=== PATIENT | female | born 1980 | race Caucasian/White ===

== ENCOUNTER 2019-05-06 19:56 | Observation (INO) | payer BC ==
[2019-05-06] MEDS ORDERED: Sodium Chloride 0.9% 1000 ML 1,000 ML IV STA (20:33)
[2019-05-06] MEDS ORDERED: Sodium Chloride 0.9% 1000 ML 1,000 ML ONE (20:35)
[2019-05-06 20:44] LABS: Absolute Neutrophil Ct (ANC) 7.53 (1.4-6.9); Basophil (Absolute #) 0.11 (0-0.4); Eosinophil % 2.3 % (0.00-5.0); Eosinophil (Absolute #) 0.25 (0-0.5); Hematocrit 24.8 % (35-47); Lymphocyte (Absolute #) 2.58 (1.0-4.6); Lymphocytes % 23.5 % (24.0-44.0); Mean Cell Volume 74.5 fl (78-100); Mean Corpuscular Hemoglobin 20.7 pg (26-32); Mean Corpuscular Hgb Concent. 27.8 g/dl (32-36); Mean Platelet Volume 10.7 fl (6-9.5); Monocyte (Absolute #) 0.51 (0.0-1.3); Monocytes % 4.6 % (0.0-12.0); Neutrophil % 68.6 % (36.0-66.0); Platelet Count 426 K/mm3 (150-450); Red Blood Count 3.33 M/mm3 (4.1-5.4)
--- NOTE | 2019-05-06 20:48 | ERPHSYRPT ---
- History of Present Illness Time Seen by Provider: 05/06/19 20:20 Source: patient, family Exam Limitations: no limitations Patient Subjective Stated Complaint: Abdnormal labs Triage Nursing Assessment: Patient ambulated back to ED and transferred self to bed. Patient A+O X3. Patient's skin pale, warm and dry. Patient complains of increased SOB for the past two days. [facility] and had labs drawn and chest x-ray. Patient received call from [facility] [employer] at 1600 stating patient's hemaglobin was 7.0 and her thyroid level was low and she needed to go to ED. Patient denies pain or discomfort. Lungs clear a/p zenaida. Heart tones audible. No edema noted. Patient states she is currently on her menstual cycle and it is heavy with blood clots. Physician History: 38 years old female with a history of thyroidectomy not taking any medications present in the ER for low hemoglobin of 7. Patient report having gradually worsening shortness of breath since yesterday with negative chest x-ray done outpatient and hemoglobin turned out to be 7. Patient also reports having heavy menstrual cycles every time but this time she is passing big clots. She denies any chest pain or palpitations but shortness of breath especially with activity and better with testing. She also has nonproductive cough for the last few days. Patient reports she has chronic anemia and is supposed to take iron but has not been taking. Denies any abdominal pain nausea or vomiting. Denies any dark-colored stool. Modifying Factors: Improves With: movement Associated Symptoms: shortness of breath, cough, No nausea, No vomiting, No abdominal pain, No chest pain, No malaise Allergies/Adverse Reactions: prochlorperazine [From Compazine] Allergy (Verified 05/06/19 20:09) Home Medications: Levothyroxine Sodium 175 mcg PO DAILY 05/06/19 [History] Hx Influenza Vaccination/Date Given: No Hx Pneumococcal Vaccination/Date Given: No Immunizations Up to Date: Yes - Review of Systems Constitutional: No Symptoms Eyes: No Symptoms Ears, Nose, & Throat: No Symptoms Respiratory: No Symptoms Abdominal/Gastrointestinal: No Symptoms Genitourinary Symptoms: No Symptoms Skin: No Symptoms Neurological: No Symptoms Endocrine: No Symptoms Hematologic/Lymphatic: No Symptoms Immunological/Allergic: No Symptoms - Past Medical History Pertinent Past Medical History: Yes Neurological History: No Pertinent History ENT History: No Pertinent History Cardiac History: No Pertinent History Respiratory History: No Pertinent History Endocrine Medical History: Hypothyroidism Musculoskeletal History: No Pertinent History GI Medical History: No Pertinent History History: No Pertinent History Psycho-Social History: No Pertinent History Female Reproductive Disorders: No Pertinent History - Past Surgical History Past Surgical History: Yes Neuro Surgical History: No Pertinent History Cardiac: No Pertinent History Respiratory: No Pertinent History Gastrointestinal: No Pertinent History Genitourinary: No Pertinent History Musculoskeletal: No Pertinent History Female Surgical History: Section Other Surgical History: X 1. Thyroidectomy 2016 - Social History Smoking Status: Never smoker Exposure to second hand smoke: No Drug Use: none Patient Lives Alone: No - Female History Hx Last Menstrual Period: currently Hx Now: No - Nursing Vital Signs Nursing Vital Signs: Initial Vital Signs Temperature 98.0 F 05/06/19 20:16 Pulse Rate 94 H 05/06/19 20:16 Respiratory Rate 18 05/06/19 20:16 Blood Pressure 128/71 05/06/19 20:16 O2 Sat by Pulse Oximetry 100 05/06/19 20:16 Pain Scale Pain Intensity 0 - Physical Exam General Appearance: no apparent distress Eye Exam: PERRL/EOMI, eyes nml inspection Ears, Nose, Throat Exam: normal ENT inspection, TMs normal, pharynx normal Neck Exam: normal inspection, non-tender, supple, full range of motion Respiratory Exam: normal breath sounds, chest tenderness, lungs clear, airway intact, No respiratory distress Cardiovascular Exam: regular rate/rhythm, normal heart sounds, normal peripheral pulses Gastrointestinal/Abdomen Exam: soft, normal bowel sounds, No tenderness, No distention Back Exam: normal inspection Extremity Exam: normal inspection, normal range of motion Neurologic Exam: alert, oriented x 3, cooperative Skin Exam: normal color SpO2 Interpretation: normal SpO2: 100 O2 Delivery: Room Air - Course Nursing assessment & vital signs reviewed: Yes Ordered Tests: Active Orders 24 hr Category Date Time Status Consent,Obtain ROUTINE Care 05/06/19 21:37 Active H&H 1 Hr Post Transfusion 1 HR POST TRANSFUS Care 05/06/19 21:37 Active IV Insertion STAT Care 05/06/19 20:33 Active CBC W DIFF Stat Lab 05/06/19 20:33 Completed CMP Stat Lab 05/06/19 20:20 Completed Occult Blood-Screening (Stool) [Occult Blood - Cancer Lab 05/06/19 21:38 Ordered Screen] Stat PROTIME WITH INR Stat Lab 05/06/19 20:33 Completed PTT Stat Lab 05/06/19 20:33 Completed TSH [TSH, 3RD Generation] Stat Lab 05/06/19 20:20 Completed Medication Summary Discontinued Medications Generic Name Dose Route Start Last Admin Trade Name Joann PRN Reason Stop Dose Admin Sodium Chloride 1,000 mls @ 999 mls/hr 05/06/19 20:33 05/06/19 21:39 Sodium Chloride 0.9% 1000 Ml IV 05/06/19 21:33 Infused .Q1H1M STA Infusion Sodium Chloride Confirm 05/06/19 20:35 Sodium Chloride 0.9% 1000 Ml Administered 05/06/19 20:36 Dose 1,000 mls @ ud .ROUTE .K-MED ONE Lab/Rad Data: Laboratory Result Diagrams 05/06/19 20:33 05/06/19 20:20 Laboratory Results 05/06/19 05/06/19 05/06/19 Range/Units 20:33 20:33 20:20 WBC 11.0 H (4.0-10.5) K/mm3 RBC 3.33 L (4.1-5.4) M/mm3 Hgb 6.9 L* (12.0-16.0) gm/dl Hct 24.8 L (35-47) % MCV 74.5 L (78-100) fl MCH 20.7 L (26-32) pg MCHC 27.8 L (32-36) g/dl RDW 19.0 H (11.5-14.0) % Plt Count 426 (150-450) K/mm3 MPV 10.7 H (6-9.5) fl Gran % 68.6 H (36.0-66.0) % Eos # (Auto) 0.25 (0-0.5) Absolute Lymphs (auto) 2.58 (1.0-4.6) Absolute Monos (auto) 0.51 (0.0-1.3) Lymphocytes % 23.5 L (24.0-44.0) % Monocytes % 4.6 (0.0-12.0) % Eosinophils % 2.3 (0.00-5.0) % Basophils % 1.0 (0.0-0.4) % Absolute Granulocytes 7.53 H (1.4-6.9) Basophils # 0.11 (0-0.4) PT 12.6 H (9.95-12.35) SECONDS INR 1.11 (0.8-3.0) APTT 32.1 (25.3-37.0) SECONDS Sodium (137-145) mmol/L Potassium (3.5-5.1) mmol/L Chloride (98-107) mmol/L Carbon Dioxide (22-30) mmol/L Anion Gap (5-15) MEQ/L BUN (7-17) mg/dL Creatinine (0.52-1.04) mg/dL Estimated GFR ML/MIN Glucose (74-106) mg/dL Calcium (8.4-10.2) mg/dL Total Bilirubin (0.2-1.3) mg/dL AST (14-36) U/L ALT (0-35) U/L Alkaline Phosphatase (38-126) U/L Serum Total Protein (6.3-8.2) g/dL Albumin (3.5-5.0) g/dL TSH 3rd Generation 53.500 H (0.47-4.68) mIU/L 05/06/19 Range/Units 20:20 WBC (4.0-10.5) K/mm3 RBC (4.1-5.4) M/mm3 Hgb (12.0-16.0) gm/dl Hct (35-47) % MCV (78-100) fl MCH (26-32) pg MCHC (32-36) g/dl RDW (11.5-14.0) % Plt Count (150-450) K/mm3 MPV (6-9.5) fl Gran % (36.0-66.0) % Eos # (Auto) (0-0.5) Absolute Lymphs (auto) (1.0-4.6) Absolute Monos (auto) (0.0-1.3) Lymphocytes % (24.0-44.0) % Monocytes % (0.0-12.0) % Eosinophils % (0.00-5.0) % Basophils % (0.0-0.4) % Absolute Granulocytes (1.4-6.9) Basophils # (0-0.4) PT (9.95-12.35) SECONDS INR (0.8-3.0) APTT (25.3-37.0) SECONDS Sodium 139 (137-145) mmol/L Potassium 4.0 (3.5-5.1) mmol/L Chloride 104 (98-107) mmol/L Carbon Dioxide 27 (22-30) mmol/L Anion Gap 12.5 (5-15) MEQ/L BUN 10 (7-17) mg/dL Creatinine 1.15 H (0.52-1.04) mg/dL Estimated GFR 56.1 ML/MIN Glucose 137 H (74-106) mg/dL Calcium 8.6 (8.4-10.2) mg/dL Total Bilirubin 0.20 (0.2-1.3) mg/dL AST 21 (14-36) U/L ALT 16 (0-35) U/L Alkaline Phosphatase 101 (38-126) U/L Serum Total Protein 7.4 (6.3-8.2) g/dL Albumin 4.0 (3.5-5.0) g/dL TSH 3rd Generation (0.47-4.68) mIU/L - Progress Progress: unchanged, re-examined Progress Note: she is given a bolus of fluid. She has hemoglobin of 6.9. After informed consent about risks and benefits of cost fusion crossmatch is done and will plan on transfusing this patient agreed to go ahead with transfusion. She has chest x-ray done this afternoon which was negative. Lungs are bilaterally clear to auscultation. I do not think need to do another x-rays.stool occult is negative. Discussed with Dr. Gonzalez hospitalist hr operations advisor and patient is being admitted for observation. 05/06/19 21:45 Discussed with : Marlon Will see patient in: hospital (observation) Counseled pt/family regarding: lab results, diagnosis - Departure Departure Disposition: Observation Clinical Impression: Symptomatic anemia Condition: Stable Critical Care Time: No Referrals: DALIA GREENFIELD [Primary Care Provider] -
[2019-05-06 20:49] LABS: Hemoglobin 6.9 gm/dl (12.0-16.0)
[2019-05-06 21:00] LABS: INR 1.11 (0.8-3.0); PROTIME 12.6 SECONDS (9.95-12.35)
[2019-05-06 21:02] LABS: PTT 32.1 SECONDS (25.3-37.0)
[2019-05-06 21:04] LABS: ANION GAP 12.5 MEQ/L (5-15); BILIRUBIN,TOTAL 0.2 mg/dL (0.2-1.3); Calcium 8.6 mg/dL (8.4-10.2); Creatinine 1 1.15 mg/dL (0.52-1.04); Total Protein 7.4 g/dL (6.3-8.2)
[2019-05-06 22:00] LABS: Slide Review 1 YES
[2019-05-06 22:34] LABS: ABO TYPING O; Antibody Screen NEGATIVE (NEGATIVE); RH TYPING POSITIVE
[2019-05-06 22:36] LABS: CROSS MATCH (PRBC) COMPATIBLE (COMPATIBLE)
[2019-05-06] MEDS ORDERED: Sodium Chloride 0.9% 500 ML 500 ML IV ONE (22:40)
[2019-05-07 05:46] LABS: Absolute Neutrophil Ct (ANC) 6.51 (1.4-6.9); BASOPHIL % 0.7 % (0.0-0.4); Basophil (Absolute #) 0.07 (0-0.4); Eosinophil % 2.3 % (0.00-5.0); Eosinophil (Absolute #) 0.24 (0-0.5); Hemoglobin 8.2 gm/dl (12.0-16.0); Lymphocyte (Absolute #) 3.02 (1.0-4.6); Lymphocytes % 28.8 % (24.0-44.0); Mean Cell Volume 76.1 fl (78-100); Mean Corpuscular Hgb Concent. 29.3 g/dl (32-36); Mean Platelet Volume 11.3 fl (6-9.5); Monocyte (Absolute #) 0.63 (0.0-1.3); Neutrophil % 62.2 % (36.0-66.0); Platelet Count 382 K/mm3 (150-450); Red Blood Count 3.68 M/mm3 (4.1-5.4); Red Cell Distribution Width 18.5 % (11.5-14.0); White Blood Count 10.5 K/mm3 (4.0-10.5)
[2019-05-07 05:56] LABS: Mean Corpuscular Hemoglobin 22.2 pg (26-32)
[2019-05-07 05:58] LABS: ALBUMIN 3.6 g/dL (3.5-5.0); ALKALINE PHOSPHATASE 100 U/L (38-126); ANION GAP 13.7 MEQ/L (5-15); BLOOD UREA NITROGEN 10 mg/dL (7-17); CHLORIDE 105 mmol/L (98-107); Calcium 7.9 mg/dL (8.4-10.2); Carbon Dioxide 25 mmol/L (22-30); Creatinine 1 1.02 mg/dL (0.52-1.04); Glucose 97 mg/dL (74-106); Potassium 3.5 mmol/L (3.5-5.1); SGOT/AST 22 U/L (14-36); SGPT/ALT 15 U/L (0-35); SODIUM 140 mmol/L (137-145); Total Protein 6.8 g/dL (6.3-8.2)
--- NOTE | 2019-05-07 10:47 | PCM.CONS ---
History of Present Illness - Reason for Consult Chief Complaint: anemia, hypothyroid Date of Consultation Date: 05/07/19 Reason for Consult: ANEMIA, MENORRHAGIA Requesting Provider: ZHANG SWEET Consulting Provider: SAÚL FLEMING DO History of Present Illness: PT IS A 38 YO LMP 7 DAYS AGO WITH HX OF HYPOTHYROID WAS SEEN IN [facility] YESTERDAY FOR COUGHING AND DYSPNEA WHERE LABS WERE DRAWN AND WAS NOTICED TO BEING ANEMIC WITH A HEMOGLOBIN OF 7. PT STATES HER LAST SEVERAL PERIODS HAVE BEEN NORMAL CYCLE HOWEVER THIS CURRENT PERIOD EXPERIENCED HEAVY BLEEDING PASSING CLOTS. DOES STATES THAT HER PREVIOUS PERIOD WAS NORMAL IN LENGTH AND HAS HAD HEAVY PERIODS IN THE PAST SUCH THIS CURRENT ONE. DENIES BEING ON ANY CONTROL MEASURE OR USING ANY MEDICATION TO ALLEVIATE HER HEAVY BLEEDING. 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 DID CO MILD FATIGUE AND COUGHING WHEN SHE CAME INTO THE ER. 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 HAS RECEIVED 2 UNITS OF BLOOD AND FEELING BETTER. VSS AFEBRILE PELVIC EXAM; DECLINES AT THIS TIME LABS REVIEWED A/P ANEMIA, MENORRHAGIA STABLE PELVIC SONOGRAM ORDERED. D/W PT THE NEED TO EITHER MEDICALLY MANAGE HER HEAVY PERIODS VS SURGICAL MANAGEMENT. PT WILL CONSIDER BOTH OPTIONS AND LET ME KNOW WHEN SHE SEES ME IN THE OFFICE THIS SUNDAY OR NEXT SUNDAY. DW HER THE NEED FOR AT LEAST A HYSTEROSCOPY D&C FOR EVALUATION OF ENDOMETRIAL LINING. DW HER THE OPTIONS OF PLACING HER ON TRANEXAMIC ACID DURING MENSTURAL PERIOD VS MIRENA IUD, VS MONTHLY PROGESTERONE WITHDRAWL BLEEDING TO ALLEVIATE HER MENSTRUAL FLOW. PT WILL FU IN MY OFFICE DIRECTED EITHER THIS SUNDAY OR THIS COMING SUNDAY FOR FURTHER EVALUATION. - Review of Systems Constitutional: Fatigue Eyes: No Symptoms Ears, Nose, & Throat: No Symptoms Respiratory: Cough Cardiac: No Chest Pain, No Edema, No Syncope Abdominal/Gastrointestinal: No Abdominal Pain, No Nausea, No Vomiting, No Diarrhea Genitourinary Symptoms: Menorrhagia Musculoskeletal: No Symptoms Skin: No Symptoms Neurological: No Symptoms Medications & Allergies Home Medications: Home Medication List Levothyroxine Sodium 100 Mcg [Synthroid 100 Mcg] 100 mcg PO DAILY 05/07/19 [History Confirmed 05/07/19] Allergies/Adverse Reactions: Allergies Allergy/AdvReac Type Severity Reaction Status Date / Time prochlorperazine Allergy Verified 05/06/19 20:09 [From Compazine] - Past Medical History Past Medical History: Yes Neurological History: No Pertinent History ENT History: No Pertinent History Cardiac History: No Pertinent History Respiratory History: No Pertinent History Endocrine Medical History: Hypothyroidism Musculoskelatal History: No Pertinent History GI Medical History: No Pertinent History History: No Pertinent History Pyscho-Social History: No Pertinent History Reproductive Disorders: No Pertinent History Comment: anemia - Female History Hx Last Menstrual Period: currently Are you now?: No - Past Surgical History Past Surgical History: Yes Neuro Surgical History: No Pertinent History Cardiac History: No Pertinent History Respiratory Surgery: No Pertinent History GI Surgical History: No Pertinent History Genitourinary Surgical Hx: No Pertinent History Musculskeletal Surgical Hx: No Pertinent History Female Surgical History: Section Other Surgical History: X 1. Thyroidectomy 2016 - Social History Smoking Status: Former smoker Exposure to second hand smoke: No Alcohol: None Drug Use: none - Physical Exam Vital Signs: Vital Signs - 24 hr Temp Pulse Resp BP BP Pulse Ox 05/07/19 07:08 98.0 F 86 18 119/66 94 L 05/07/19 04:00 99.3 F 83 18 135/79 95 05/07/19 01:10 95 05/07/19 01:06 86 18 95 05/07/19 01:04 98.2 F 95 H 18 144/69 144/69 95 05/06/19 23:20 88 18 136/73 96 05/06/19 22:06 86 16 154/95 98 05/06/19 21:48 100 05/06/19 21:42 88 18 114/56 100 05/06/19 20:16 98.0 F 94 H 18 128/71 100 General Appearance: no apparent distress, alert Neurologic Exam: alert, oriented x 3, cooperative, normal mood/affect, nml cerebellar function, nml station & gait, sensation nml, No motor deficits Pelvic Exam: deferred, other Results - Labs Lab/Micro Results: Lab Results-Last 24 Hours 05/06/19 05/06/19 05/06/19 Range/Units 20:20 20:20 20:33 WBC 11.0 H (4.0-10.5) K/mm3 RBC 3.33 L (4.1-5.4) M/mm3 Hgb 6.9 L* (12.0-16.0) gm/dl Hct 24.8 L (35-47) % MCV 74.5 L (78-100) fl MCH 20.7 L (26-32) pg MCHC 27.8 L (32-36) g/dl RDW 19.0 H (11.5-14.0) % Plt Count 426 (150-450) K/mm3 MPV 10.7 H (6-9.5) fl Gran % 68.6 H (36.0-66.0) % Eos # (Auto) 0.25 (0-0.5) Absolute Lymphs (auto) 2.58 (1.0-4.6) Absolute Monos (auto) 0.51 (0.0-1.3) Lymphocytes % 23.5 L (24.0-44.0) % Monocytes % 4.6 (0.0-12.0) % Eosinophils % 2.3 (0.00-5.0) % Basophils % 1.0 (0.0-0.4) % Absolute Granulocytes 7.53 H (1.4-6.9) Basophils # 0.11 (0-0.4) PT (9.95-12.35) SECONDS INR (0.8-3.0) APTT (25.3-37.0) SECONDS Sodium 139 (137-145) mmol/L Potassium 4.0 (3.5-5.1) mmol/L Chloride 104 (98-107) mmol/L Carbon Dioxide 27 (22-30) mmol/L Anion Gap 12.5 (5-15) MEQ/L BUN 10 (7-17) mg/dL Creatinine 1.15 H (0.52-1.04) mg/dL Estimated GFR 56.1 ML/MIN Glucose 137 H (74-106) mg/dL Calcium 8.6 (8.4-10.2) mg/dL Total Bilirubin 0.20 (0.2-1.3) mg/dL AST 21 (14-36) U/L ALT 16 (0-35) U/L Alkaline Phosphatase 101 (38-126) U/L Serum Total Protein 7.4 (6.3-8.2) g/dL Albumin 4.0 (3.5-5.0) g/dL TSH 3rd Generation 53.500 H (0.47-4.68) mIU/L Stool Occult Bld Scrn (NEGATIVE) Slides for Path Review YES ABO Group Rh Factor Antibody Screen (NEGATIVE) Crossmatch (COMPATIBLE) 05/06/19 05/06/19 05/06/19 Range/Units 20:33 20:50 20:50 WBC (4.0-10.5) K/mm3 RBC (4.1-5.4) M/mm3 Hgb (12.0-16.0) gm/dl Hct (35-47) % MCV (78-100) fl MCH (26-32) pg MCHC (32-36) g/dl RDW (11.5-14.0) % Plt Count (150-450) K/mm3 MPV (6-9.5) fl Gran % (36.0-66.0) % Eos # (Auto) (0-0.5) Absolute Lymphs (auto) (1.0-4.6) Absolute Monos (auto) (0.0-1.3) Lymphocytes % (24.0-44.0) % Monocytes % (0.0-12.0) % Eosinophils % (0.00-5.0) % Basophils % (0.0-0.4) % Absolute Granulocytes (1.4-6.9) Basophils # (0-0.4) PT 12.6 H (9.95-12.35) SECONDS INR 1.11 (0.8-3.0) APTT 32.1 (25.3-37.0) SECONDS Sodium (137-145) mmol/L Potassium (3.5-5.1) mmol/L Chloride (98-107) mmol/L Carbon Dioxide (22-30) mmol/L Anion Gap (5-15) MEQ/L BUN (7-17) mg/dL Creatinine (0.52-1.04) mg/dL Estimated GFR ML/MIN Glucose (74-106) mg/dL Calcium (8.4-10.2) mg/dL Total Bilirubin (0.2-1.3) mg/dL AST (14-36) U/L ALT (0-35) U/L Alkaline Phosphatase (38-126) U/L Serum Total Protein (6.3-8.2) g/dL Albumin (3.5-5.0) g/dL TSH 3rd Generation (0.47-4.68) mIU/L Stool Occult Bld Scrn (NEGATIVE) Slides for Path Review ABO Group O Rh Factor POSITIVE Antibody Screen NEGATIVE (NEGATIVE) Crossmatch COMPATIBLE (COMPATIBLE) 05/06/19 05/06/19 05/07/19 Range/Units 20:50 21:38 05:05 WBC 10.5 (4.0-10.5) K/mm3 RBC 3.68 L (4.1-5.4) M/mm3 Hgb 8.2 L (12.0-16.0) gm/dl Hct 28.0 L (35-47) % MCV 76.1 L (78-100) fl MCH 22.2 L (26-32) pg MCHC 29.3 L (32-36) g/dl RDW 18.5 H (11.5-14.0) % Plt Count 382 (150-450) K/mm3 MPV 11.3 H (6-9.5) fl Gran % 62.2 (36.0-66.0) % Eos # (Auto) 0.24 (0-0.5) Absolute Lymphs (auto) 3.02 (1.0-4.6) Absolute Monos (auto) 0.63 (0.0-1.3) Lymphocytes % 28.8 (24.0-44.0) % Monocytes % 6.0 (0.0-12.0) % Eosinophils % 2.3 (0.00-5.0) % Basophils % 0.7 (0.0-0.4) % Absolute Granulocytes 6.51 (1.4-6.9) Basophils # 0.07 (0-0.4) PT (9.95-12.35) SECONDS INR (0.8-3.0) APTT (25.3-37.0) SECONDS Sodium (137-145) mmol/L Potassium (3.5-5.1) mmol/L Chloride (98-107) mmol/L Carbon Dioxide (22-30) mmol/L Anion Gap (5-15) MEQ/L BUN (7-17) mg/dL Creatinine (0.52-1.04) mg/dL Estimated GFR ML/MIN Glucose (74-106) mg/dL Calcium (8.4-10.2) mg/dL Total Bilirubin (0.2-1.3) mg/dL AST (14-36) U/L ALT (0-35) U/L Alkaline Phosphatase (38-126) U/L Serum Total Protein (6.3-8.2) g/dL Albumin (3.5-5.0) g/dL TSH 3rd Generation (0.47-4.68) mIU/L Stool Occult Bld Scrn NEGATIVE (NEGATIVE) Slides for Path Review ABO Group Rh Factor Antibody Screen (NEGATIVE) Crossmatch COMPATIBLE (COMPATIBLE) 05/07/19 Range/Units 05:05 WBC (4.0-10.5) K/mm3 RBC (4.1-5.4) M/mm3 Hgb (12.0-16.0) gm/dl Hct (35-47) % MCV (78-100) fl MCH (26-32) pg MCHC (32-36) g/dl RDW (11.5-14.0) % Plt Count (150-450) K/mm3 MPV (6-9.5) fl Gran % (36.0-66.0) % Eos # (Auto) (0-0.5) Absolute Lymphs (auto) (1.0-4.6) Absolute Monos (auto) (0.0-1.3) Lymphocytes % (24.0-44.0) % Monocytes % (0.0-12.0) % Eosinophils % (0.00-5.0) % Basophils % (0.0-0.4) % Absolute Granulocytes (1.4-6.9) Basophils # (0-0.4) PT (9.95-12.35) SECONDS INR (0.8-3.0) APTT (25.3-37.0) SECONDS Sodium 140 (137-145) mmol/L Potassium 3.5 (3.5-5.1) mmol/L Chloride 105 (98-107) mmol/L Carbon Dioxide 25 (22-30) mmol/L Anion Gap 13.7 (5-15) MEQ/L BUN 10 (7-17) mg/dL Creatinine 1.02 (0.52-1.04) mg/dL Estimated GFR > 60.0 ML/MIN Glucose 97 (74-106) mg/dL Calcium 7.9 L (8.4-10.2) mg/dL Total Bilirubin 1.00 (0.2-1.3) mg/dL AST 22 (14-36) U/L ALT 15 (0-35) U/L Alkaline Phosphatase 100 (38-126) U/L Serum Total Protein 6.8 (6.3-8.2) g/dL Albumin 3.6 (3.5-5.0) g/dL TSH 3rd Generation (0.47-4.68) mIU/L Stool Occult Bld Scrn (NEGATIVE) Slides for Path Review ABO Group Rh Factor Antibody Screen (NEGATIVE) Crossmatch (COMPATIBLE) - Radiology Impressions Radiology Exams & Impressions: Radiology Procedures Category Date Time Status PELVIC [US] Urgent Exams 05/07/19 Ordered PELVIS TRANS VAGINAL [US] Urgent Exams 05/07/19 Ordered Assessment/Plan (1) Menorrhagia Current Visit: Yes Status: Chronic Onset Date: ~04/30/19 Qualifiers: Menorrahagia type: with onset of menstrual periods Qualified Code(s): N92.2 - Excessive menstruation at puberty Code(s): N92.0 - EXCESSIVE AND FREQUENT MENSTRUATION WITH REGULAR CYCLE (2) Hypothyroidism Current Visit: No Status: Acute Onset Date: ~05/06/19 Code(s): E03.9 - HYPOTHYROIDISM, UNSPECIFIED (3) Symptomatic anemia Current Visit: Yes Status: Acute Onset Date: ~05/06/19 Code(s): D64.9 - ANEMIA, UNSPECIFIED
[2019-05-07 11:28] VITALS: BP 175/84; PULSE 84; O2SAT 100
--- NOTE | 2019-05-07 12:07 | XRAY ---
Indication: Menorrhagia. Two-dimensional transabdominal and transvaginal pelvic sonogram performed. Comparison: June 11, 2012. Uterus again anteverted today measuring 11.5 x 3.7 x 5.2 cm. Lower uterine segment demonstrates interval enlarging nabothian cysts, largest 10 mm. Endometrial stripe measures 8 mm. No endometrial cavity mass or fluid collection. Neither ovaries visualized. No suspicious adnexal mass or free fluid. Impression: Interval enlarging nabothian cysts. Both ovaries not visualized. Remaining pelvic sonogram negative.
--- NOTE | 2019-05-07 13:25 | PCM.SSS ---
History of Present Illness - Chief Complaint Chief Complaint: came with cough and heavy menstrual period History of Present Illness: is a 38 years old female with a history of thyroidectomy not taking any medications present in the ER for low hemoglobin of 7. Patient report having gradually worsening shortness of breath since yesterday with negative chest x-ray done outpatient and hemoglobin turned out to be 7. Patient also reports having heavy menstrual cycles every time but this time she is passing big clots. She denies any chest pain or palpitations but shortness of breath especially with activity and better with testing. She also has nonproductive cough for the last few days. Patient reports she has chronic anemia and is supposed to take iron but has not been taking. Denies any abdominal pain nausea or vomiting. Denies any dark-colored stool. Modifying Factors: Improves With: movement Associated Symptoms: shortness of breath, cough, No nausea, No vomiting, No abdominal pain, No chest pain, No malaise - Review of Systems Constitutional: No Fever, No Chills Eyes: No Symptoms Ears, Nose, & Throat: No Symptoms Respiratory: No Cough, No Short Of Breath Cardiac: No Chest Pain, No Edema, No Syncope Abdominal/Gastrointestinal: No Abdominal Pain, No Nausea, No Vomiting, No Diarrhea Genitourinary Symptoms: No Dysuria Musculoskeletal: No Back Pain, No Neck Pain Skin: No Rash Neurological: No Dizziness, No Focal Weakness, No Sensory Changes Psychological: No Symptoms Endocrine: No Symptoms Hematologic/Lymphatic: No Symptoms Immunological/Allergic: No Symptoms Medications & Allergies Home Medications: Home Medication List Levothyroxine Sodium 100 Mcg [Synthroid 100 Mcg] 100 mcg PO DAILY 05/07/19 [History Confirmed 05/07/19] Allergies/Adverse Reactions: Allergies Allergy/AdvReac Type Severity Reaction Status Date / Time prochlorperazine Allergy Verified 05/06/19 20:09 [From Compazine] - Past Medical History Past Medical History: Yes Neurological History: No Pertinent History ENT History: No Pertinent History Cardiac History: No Pertinent History Respiratory History: No Pertinent History Endocrine Medical History: Hypothyroidism Musculoskelatal History: No Pertinent History GI Medical History: No Pertinent History History: No Pertinent History Pyscho-Social History: No Pertinent History Reproductive Disorders: No Pertinent History Comment: anemia - Female History Hx Last Menstrual Period: currently Are you now?: No - Past Surgical History Past Surgical History: Yes Neuro Surgical History: No Pertinent History Cardiac History: No Pertinent History Respiratory Surgery: No Pertinent History GI Surgical History: No Pertinent History Genitourinary Surgical Hx: No Pertinent History Musculskeletal Surgical Hx: No Pertinent History Female Surgical History: Section Other Surgical History: X 1. Thyroidectomy 2016 - Social History Smoking Status: Former smoker Exposure to second hand smoke: No Alcohol: None Drug Use: none - Physical Exam Vital Signs: Vital Signs - 24 hr Temp Pulse Resp BP BP Pulse Ox 05/07/19 11:27 98.1 F 84 18 175/84 100 05/07/19 07:08 98.0 F 86 18 119/66 94 L 05/07/19 04:00 99.3 F 83 18 135/79 95 05/07/19 01:10 95 05/07/19 01:06 86 18 95 05/07/19 01:04 98.2 F 95 H 18 144/69 144/69 95 05/06/19 23:20 88 18 136/73 96 05/06/19 22:06 86 16 154/95 98 05/06/19 21:48 100 05/06/19 21:42 88 18 114/56 100 05/06/19 20:16 98.0 F 94 H 18 128/71 100 General Appearance: no apparent distress, alert Neurologic Exam: alert, oriented x 3, cooperative, normal mood/affect, nml cerebellar function, nml station & gait, sensation nml, No motor deficits Eye Exam: PERRL/EOMI, eyes nml inspection Ears, Nose, Throat Exam: normal ENT inspection, TMs normal, pharynx normal, moist mucous membranes Neck Exam: normal inspection, non-tender, supple, full range of motion Respiratory Exam: normal breath sounds, lungs clear, No respiratory distress Cardiovascular Exam: regular rate/rhythm, normal heart sounds, normal peripheral pulses Gastrointestinal/Abdomen Exam: soft, normal bowel sounds, No tenderness, No mass Back Exam: normal inspection, normal range of motion, No CVA tenderness, No vertebral tenderness Extremity Exam: normal inspection, normal range of motion, pelvis stable Skin Exam: normal color, warm, dry, No rash Lymphatic Exam: No adenopathy Results - Labs Lab/Micro Results: Lab Results-Last 24 Hours 05/06/19 05/06/19 05/06/19 Range/Units 20:20 20:20 20:33 WBC 11.0 H (4.0-10.5) K/mm3 RBC 3.33 L (4.1-5.4) M/mm3 Hgb 6.9 L* (12.0-16.0) gm/dl Hct 24.8 L (35-47) % MCV 74.5 L (78-100) fl MCH 20.7 L (26-32) pg MCHC 27.8 L (32-36) g/dl RDW 19.0 H (11.5-14.0) % Plt Count 426 (150-450) K/mm3 MPV 10.7 H (6-9.5) fl Gran % 68.6 H (36.0-66.0) % Eos # (Auto) 0.25 (0-0.5) Absolute Lymphs (auto) 2.58 (1.0-4.6) Absolute Monos (auto) 0.51 (0.0-1.3) Lymphocytes % 23.5 L (24.0-44.0) % Monocytes % 4.6 (0.0-12.0) % Eosinophils % 2.3 (0.00-5.0) % Basophils % 1.0 (0.0-0.4) % Absolute Granulocytes 7.53 H (1.4-6.9) Basophils # 0.11 (0-0.4) PT (9.95-12.35) SECONDS INR (0.8-3.0) APTT (25.3-37.0) SECONDS Sodium 139 (137-145) mmol/L Potassium 4.0 (3.5-5.1) mmol/L Chloride 104 (98-107) mmol/L Carbon Dioxide 27 (22-30) mmol/L Anion Gap 12.5 (5-15) MEQ/L BUN 10 (7-17) mg/dL Creatinine 1.15 H (0.52-1.04) mg/dL Estimated GFR 56.1 ML/MIN Glucose 137 H (74-106) mg/dL Calcium 8.6 (8.4-10.2) mg/dL Total Bilirubin 0.20 (0.2-1.3) mg/dL AST 21 (14-36) U/L ALT 16 (0-35) U/L Alkaline Phosphatase 101 (38-126) U/L Serum Total Protein 7.4 (6.3-8.2) g/dL Albumin 4.0 (3.5-5.0) g/dL TSH 3rd Generation 53.500 H (0.47-4.68) mIU/L Stool Occult Bld Scrn (NEGATIVE) Slides for Path Review YES ABO Group Rh Factor Antibody Screen (NEGATIVE) Crossmatch (COMPATIBLE) 05/06/19 05/06/19 05/06/19 Range/Units 20:33 20:50 20:50 WBC (4.0-10.5) K/mm3 RBC (4.1-5.4) M/mm3 Hgb (12.0-16.0) gm/dl Hct (35-47) % MCV (78-100) fl MCH (26-32) pg MCHC (32-36) g/dl RDW (11.5-14.0) % Plt Count (150-450) K/mm3 MPV (6-9.5) fl Gran % (36.0-66.0) % Eos # (Auto) (0-0.5) Absolute Lymphs (auto) (1.0-4.6) Absolute Monos (auto) (0.0-1.3) Lymphocytes % (24.0-44.0) % Monocytes % (0.0-12.0) % Eosinophils % (0.00-5.0) % Basophils % (0.0-0.4) % Absolute Granulocytes (1.4-6.9) Basophils # (0-0.4) PT 12.6 H (9.95-12.35) SECONDS INR 1.11 (0.8-3.0) APTT 32.1 (25.3-37.0) SECONDS Sodium (137-145) mmol/L Potassium (3.5-5.1) mmol/L Chloride (98-107) mmol/L Carbon Dioxide (22-30) mmol/L Anion Gap (5-15) MEQ/L BUN (7-17) mg/dL Creatinine (0.52-1.04) mg/dL Estimated GFR ML/MIN Glucose (74-106) mg/dL Calcium (8.4-10.2) mg/dL Total Bilirubin (0.2-1.3) mg/dL AST (14-36) U/L ALT (0-35) U/L Alkaline Phosphatase (38-126) U/L Serum Total Protein (6.3-8.2) g/dL Albumin (3.5-5.0) g/dL TSH 3rd Generation (0.47-4.68) mIU/L Stool Occult Bld Scrn (NEGATIVE) Slides for Path Review ABO Group O Rh Factor POSITIVE Antibody Screen NEGATIVE (NEGATIVE) Crossmatch COMPATIBLE (COMPATIBLE) 05/06/19 05/06/19 05/07/19 Range/Units 20:50 21:38 05:05 WBC 10.5 (4.0-10.5) K/mm3 RBC 3.68 L (4.1-5.4) M/mm3 Hgb 8.2 L (12.0-16.0) gm/dl Hct 28.0 L (35-47) % MCV 76.1 L (78-100) fl MCH 22.2 L (26-32) pg MCHC 29.3 L (32-36) g/dl RDW 18.5 H (11.5-14.0) % Plt Count 382 (150-450) K/mm3 MPV 11.3 H (6-9.5) fl Gran % 62.2 (36.0-66.0) % Eos # (Auto) 0.24 (0-0.5) Absolute Lymphs (auto) 3.02 (1.0-4.6) Absolute Monos (auto) 0.63 (0.0-1.3) Lymphocytes % 28.8 (24.0-44.0) % Monocytes % 6.0 (0.0-12.0) % Eosinophils % 2.3 (0.00-5.0) % Basophils % 0.7 (0.0-0.4) % Absolute Granulocytes 6.51 (1.4-6.9) Basophils # 0.07 (0-0.4) PT (9.95-12.35) SECONDS INR (0.8-3.0) APTT (25.3-37.0) SECONDS Sodium (137-145) mmol/L Potassium (3.5-5.1) mmol/L Chloride (98-107) mmol/L Carbon Dioxide (22-30) mmol/L Anion Gap (5-15) MEQ/L BUN (7-17) mg/dL Creatinine (0.52-1.04) mg/dL Estimated GFR ML/MIN Glucose (74-106) mg/dL Calcium (8.4-10.2) mg/dL Total Bilirubin (0.2-1.3) mg/dL AST (14-36) U/L ALT (0-35) U/L Alkaline Phosphatase (38-126) U/L Serum Total Protein (6.3-8.2) g/dL Albumin (3.5-5.0) g/dL TSH 3rd Generation (0.47-4.68) mIU/L Stool Occult Bld Scrn NEGATIVE (NEGATIVE) Slides for Path Review ABO Group Rh Factor Antibody Screen (NEGATIVE) Crossmatch COMPATIBLE (COMPATIBLE) 05/07/19 Range/Units 05:05 WBC (4.0-10.5) K/mm3 RBC (4.1-5.4) M/mm3 Hgb (12.0-16.0) gm/dl Hct (35-47) % MCV (78-100) fl MCH (26-32) pg MCHC (32-36) g/dl RDW (11.5-14.0) % Plt Count (150-450) K/mm3 MPV (6-9.5) fl Gran % (36.0-66.0) % Eos # (Auto) (0-0.5) Absolute Lymphs (auto) (1.0-4.6) Absolute Monos (auto) (0.0-1.3) Lymphocytes % (24.0-44.0) % Monocytes % (0.0-12.0) % Eosinophils % (0.00-5.0) % Basophils % (0.0-0.4) % Absolute Granulocytes (1.4-6.9) Basophils # (0-0.4) PT (9.95-12.35) SECONDS INR (0.8-3.0) APTT (25.3-37.0) SECONDS Sodium 140 (137-145) mmol/L Potassium 3.5 (3.5-5.1) mmol/L Chloride 105 (98-107) mmol/L Carbon Dioxide 25 (22-30) mmol/L Anion Gap 13.7 (5-15) MEQ/L BUN 10 (7-17) mg/dL Creatinine 1.02 (0.52-1.04) mg/dL Estimated GFR > 60.0 ML/MIN Glucose 97 (74-106) mg/dL Calcium 7.9 L (8.4-10.2) mg/dL Total Bilirubin 1.00 (0.2-1.3) mg/dL AST 22 (14-36) U/L ALT 15 (0-35) U/L Alkaline Phosphatase 100 (38-126) U/L Serum Total Protein 6.8 (6.3-8.2) g/dL Albumin 3.6 (3.5-5.0) g/dL TSH 3rd Generation (0.47-4.68) mIU/L Stool Occult Bld Scrn (NEGATIVE) Slides for Path Review ABO Group Rh Factor Antibody Screen (NEGATIVE) Crossmatch (COMPATIBLE) - Radiology Impressions Radiology Exams & Impressions: Radiology Procedures Category Date Time Status PELVIC [US] Urgent Exams 05/07/19 11:51 Completed Assessment/Plan (1) Symptomatic anemia Current Visit: Yes Status: Acute Onset Date: ~05/06/19 Code(s): D64.9 - ANEMIA, UNSPECIFIED (2) Menorrhagia Current Visit: Yes Status: Chronic Onset Date: ~04/30/19 Qualifiers: Menorrahagia type: with onset of menstrual periods Qualified Code(s): N92.2 - Excessive menstruation at puberty Assessment & Plan: Chief Complaint Diagnosis anemia, hypothyroid Allergies Allergy/AdvReac Type Severity Reaction Status Date / Time prochlorperazine Allergy Verified 05/06/19 20:09 [From Compazine] Vital Signs (Last 24 hours) Temp Pulse Resp BP BP Pulse Ox 05/07/19 11:27 98.1 F 84 18 175/84 100 05/07/19 07:08 98.0 F 86 18 119/66 94 L 05/07/19 04:00 99.3 F 83 18 135/79 95 05/07/19 01:10 95 05/07/19 01:06 86 18 95 05/07/19 01:04 98.2 F 95 H 18 144/69 144/69 95 05/06/19 23:20 88 18 136/73 96 05/06/19 22:06 86 16 154/95 98 05/06/19 21:48 100 05/06/19 21:42 88 18 114/56 100 05/06/19 20:16 98.0 F 94 H 18 128/71 100 Home Medications Medication Instructions Recorded Confirmed Last Taken Type Levothyroxine Sodium 100 Mcg 100 mcg PO DAILY 05/07/19 05/07/19 Unknown History [Synthroid 100 Mcg] Current Medications Discontinued Medications Generic Name Dose Route Start Last Admin Trade Name Joann PRN Reason Stop Dose Admin Sodium Chloride 1,000 mls @ 999 mls/hr 05/06/19 20:33 05/06/19 21:39 Sodium Chloride 0.9% 1000 Ml IV 05/06/19 21:33 Infused .Q1H1M STA Infusion Sodium Chloride Confirm 05/06/19 20:35 Sodium Chloride 0.9% 1000 Ml Administered 05/06/19 20:36 Dose 1,000 mls @ ud .ROUTE .STK-MED ONE Sodium Chloride Confirm 05/06/19 22:40 Sodium Chloride 0.9% 500 Ml Administered 05/06/19 22:41 Dose 500 mls @ ud IV .STK-MED ONE Intake & Output (Last 24 hours) 05/05/19 05/06/19 05/07/19 05/08/19 11:59 11:59 11:59 11:59 Intake Total 480 Balance 480 Weight 121 kg Laboratory Results (Last 24 hours) 05/07/19 05/07/19 05/06/19 05:05 05:05 21:38 WBC 10.5 RBC 3.68 L Hgb 8.2 L Hct 28.0 L MCV 76.1 L MCH 22.2 L MCHC 29.3 L RDW 18.5 H Plt Count 382 MPV 11.3 H Gran % 62.2 Eos # (Auto) 0.24 Absolute Lymphs (auto) 3.02 Absolute Monos (auto) 0.63 Lymphocytes % 28.8 Monocytes % 6.0 Eosinophils % 2.3 Basophils % 0.7 Absolute Granulocytes 6.51 Basophils # 0.07 PT INR APTT Sodium 140 Potassium 3.5 Chloride 105 Carbon Dioxide 25 Anion Gap 13.7 BUN 10 Creatinine 1.02 Estimated GFR > 60.0 Glucose 97 Calcium 7.9 L Total Bilirubin 1.00 AST 22 ALT 15 Alkaline Phosphatase 100 Serum Total Protein 6.8 Albumin 3.6 TSH 3rd Generation Stool Occult Bld Scrn NEGATIVE Slides for Path Review ABO Group Rh Factor Antibody Screen Crossmatch 10/08/19 10/08/19 10/08/19 20:50 20:50 20:50 WBC RBC Hgb Hct MCV MCH MCHC RDW Plt Count MPV Gran % Eos # (Auto) Absolute Lymphs (auto) Absolute Monos (auto) Lymphocytes % Monocytes % Eosinophils % Basophils % Absolute Granulocytes Basophils # PT INR APTT Sodium Potassium Chloride Carbon Dioxide Anion Gap BUN Creatinine Estimated GFR Glucose Calcium Total Bilirubin AST ALT Alkaline Phosphatase Serum Total Protein Albumin TSH 3rd Generation Stool Occult Bld Scrn Slides for Path Review ABO Group O Rh Factor POSITIVE Antibody Screen NEGATIVE Crossmatch COMPATIBLE COMPATIBLE 05/06/19 05/06/19 05/06/19 20:33 20:33 20:20 WBC 11.0 H RBC 3.33 L Hgb 6.9 L* Hct 24.8 L MCV 74.5 L MCH 20.7 L MCHC 27.8 L RDW 19.0 H Plt Count 426 MPV 10.7 H Gran % 68.6 H Eos # (Auto) 0.25 Absolute Lymphs (auto) 2.58 Absolute Monos (auto) 0.51 Lymphocytes % 23.5 L Monocytes % 4.6 Eosinophils % 2.3 Basophils % 1.0 Absolute Granulocytes 7.53 H Basophils # 0.11 PT 12.6 H INR 1.11 APTT 32.1 Sodium Potassium Chloride Carbon Dioxide Anion Gap BUN Creatinine Estimated GFR Glucose Calcium Total Bilirubin AST ALT Alkaline Phosphatase Serum Total Protein Albumin TSH 3rd Generation 53.500 H Stool Occult Bld Scrn Slides for Path Review YES ABO Group Rh Factor Antibody Screen Crossmatch 05/06/19 20:20 WBC RBC Hgb Hct MCV MCH MCHC RDW Plt Count MPV Gran % Eos # (Auto) Absolute Lymphs (auto) Absolute Monos (auto) Lymphocytes % Monocytes % Eosinophils % Basophils % Absolute Granulocytes Basophils # PT INR APTT Sodium 139 Potassium 4.0 Chloride 104 Carbon Dioxide 27 Anion Gap 12.5 BUN 10 Creatinine 1.15 H Estimated GFR 56.1 Glucose 137 H Calcium 8.6 Total Bilirubin 0.20 AST 21 ALT 16 Alkaline Phosphatase 101 Serum Total Protein 7.4 Albumin 4.0 TSH 3rd Generation Stool Occult Bld Scrn Slides for Path Review ABO Group Rh Factor Antibody Screen Crossmatch Orders (Last 24 hours) Category Date Time Status Up With Assistance ROUTINE Activity 05/06/19 21:49 Active Code Status Order ROUTINE Care 05/06/19 21:49 Active Consent,Obtain ROUTINE Care 05/06/19 21:37 Active Fall Protocol ROUTINE Care 05/06/19 21:51 Completed H&H 1 Hr Post Transfusion 1 HR POST TRANSFUS Care 05/06/19 21:37 Completed IV Care Q6H Care 05/06/19 21:49 Active IV Insertion STAT Care 05/06/19 20:33 Active Miscellaneous Nursing Order ROUTINE Care 05/07/19 09:[address] in Observation ROUTINE Care 05/06/19 21:50 Active Consult Physician ROUTINE Cons 05/07/19 11:22 Active PELVIC [US] Urgent Exams 05/07/19 11:51 Completed BLOOD COMPONENT REQUEST Stat Lab 05/06/19 20:50 Completed CBC W DIFF AM.LAB Lab 05/07/19 05:05 Completed CBC W DIFF Stat Lab 05/06/19 20:33 Completed CMP AM.LAB Lab 05/07/19 05:05 Completed CMP Stat Lab 05/06/19 20:20 Completed Occult Blood-Screening (Stool) [Occult Blood - Cancer Lab 05/06/19 21:38 Completed Screen] Stat PROTIME WITH INR Stat Lab 05/06/19 20:33 Completed PTT Stat Lab 05/06/19 20:33 Completed TSH [TSH, 3RD Generation] Stat Lab 05/06/19 20:20 Completed TYPE AND SCREEN Stat Lab 05/06/19 20:50 Completed NaCl 0.9% 1000 ml [Sodium Chloride 0.9% 1000 ML] 1,000 Med 05/06/19 20:35 Discontinued ml .ROUTE UD NaCl 0.9% 1000 ml [Sodium Chloride 0.9% 1000 ML] 1,000 Med 05/06/19 20:33 Discontinued ml IV 999 mls/hr NaCl 0.9% 500 ml [Sodium Chloride 0.9% 500 ML] 500 ml Med 05/06/19 22:40 Discontinued IV UD Pulse Oximetry [Pulse Oximetry] .spot check RT 05/07/19 01:09 Completed Respiratory Therapy Consult ROUTINE RT 05/06/19 21:49 Completed Code(s): N92.0 - EXCESSIVE AND FREQUENT MENSTRUATION WITH REGULAR CYCLE Hospital Summary - Hospital Course Hospital Course: Last Vital Signs Temp 98.1 F 05/07/19 11:27 Pulse 84 05/07/19 11:27 Resp 18 05/07/19 11:27 BP 175/84 05/07/19 11:27 Pulse Ox 100 05/07/19 11:27 Allergies prochlorperazine [From Compazine] Allergy (Verified 05/06/19 20:09) Intake & Output 05/07/19 05/08/19 11:59 11:59 Intake Total 480 Balance 480 Weight 121 kg Orders 05/07/19 09:45 Miscellaneous Nursing Order ROUTINE 05/07/19 11:22 Consult Physician ROUTINE Lab Tests 05/06/19 05/06/19 05/06/19 20:20 20:20 20:33 WBC 11.0 H RBC 3.33 L Hgb 6.9 L* Hct 24.8 L MCV 74.5 L MCH 20.7 L MCHC 27.8 L RDW 19.0 H Plt Count 426 MPV 10.7 H Gran % 68.6 H Eos # (Auto) 0.25 Absolute Lymphs (auto) 2.58 Absolute Monos (auto) 0.51 Lymphocytes % 23.5 L Monocytes % 4.6 Eosinophils % 2.3 Basophils % 1.0 Absolute Granulocytes 7.53 H Basophils # 0.11 PT INR APTT Sodium 139 Potassium 4.0 Chloride 104 Carbon Dioxide 27 Anion Gap 12.5 BUN 10 Creatinine 1.15 H Estimated GFR 56.1 Glucose 137 H Calcium 8.6 Total Bilirubin 0.20 AST 21 ALT 16 Alkaline Phosphatase 101 Serum Total Protein 7.4 Albumin 4.0 TSH 3rd Generation 53.500 H Stool Occult Bld Scrn Slides for Path Review YES ABO Group Rh Factor Antibody Screen Crossmatch 05/06/19 05/06/19 05/06/19 20:33 20:50 20:50 WBC RBC Hgb Hct MCV MCH MCHC RDW Plt Count MPV Gran % Eos # (Auto) Absolute Lymphs (auto) Absolute Monos (auto) Lymphocytes % Monocytes % Eosinophils % Basophils % Absolute Granulocytes Basophils # PT 12.6 H INR 1.11 APTT 32.1 Sodium Potassium Chloride Carbon Dioxide Anion Gap BUN Creatinine Estimated GFR Glucose Calcium Total Bilirubin AST ALT Alkaline Phosphatase Serum Total Protein Albumin TSH 3rd Generation Stool Occult Bld Scrn Slides for Path Review ABO Group O Rh Factor POSITIVE Antibody Screen NEGATIVE Crossmatch COMPATIBLE 05/06/19 05/06/19 05/07/19 20:50 21:38 05:05 WBC 10.5 RBC 3.68 L Hgb 8.2 L Hct 28.0 L MCV 76.1 L MCH 22.2 L MCHC 29.3 L RDW 18.5 H Plt Count 382 MPV 11.3 H Gran % 62.2 Eos # (Auto) 0.24 Absolute Lymphs (auto) 3.02 Absolute Monos (auto) 0.63 Lymphocytes % 28.8 Monocytes % 6.0 Eosinophils % 2.3 Basophils % 0.7 Absolute Granulocytes 6.51 Basophils # 0.07 PT INR APTT Sodium Potassium Chloride Carbon Dioxide Anion Gap BUN Creatinine Estimated GFR Glucose Calcium Total Bilirubin AST ALT Alkaline Phosphatase Serum Total Protein Albumin TSH 3rd Generation Stool Occult Bld Scrn NEGATIVE Slides for Path Review ABO Group Rh Factor Antibody Screen Crossmatch COMPATIBLE 05/07/19 05:05 WBC RBC Hgb Hct MCV MCH MCHC RDW Plt Count MPV Gran % Eos # (Auto) Absolute Lymphs (auto) Absolute Monos (auto) Lymphocytes % Monocytes % Eosinophils % Basophils % Absolute Granulocytes Basophils # PT INR APTT Sodium 140 Potassium 3.5 Chloride 105 Carbon Dioxide 25 Anion Gap 13.7 BUN 10 Creatinine 1.02 Estimated GFR > 60.0 Glucose 97 Calcium 7.9 L Total Bilirubin 1.00 AST 22 ALT 15 Alkaline Phosphatase 100 Serum Total Protein 6.8 Albumin 3.6 TSH 3rd Generation Stool Occult Bld Scrn Slides for Path Review ABO Group Rh Factor Antibody Screen Crossmatch - Vitals & Intake/Output Vital Signs: Vital Signs Temperature 98.1 F 05/07/19 11:27 Pulse Rate 84 05/07/19 11:27 Respiratory Rate 18 05/07/19 11:27 Blood Pressure 175/84 05/07/19 11:27 O2 Sat by Pulse Oximetry 100 05/07/19 11:27 Intake & Output: Intake & Output 05/05/19 05/06/19 05/07/19 05/08/19 11:59 11:59 11:59 11:59 Intake Total 480 Balance 480 Weight 121 kg - Lab Result Diagrams: 05/07/19 05:05 05/07/19 05:05 Lab Results-Last 24 Hrs: Lab Results-Last 24 Hours 05/06/19 05/06/19 05/06/19 Range/Units 20:20 20:20 20:33 WBC 11.0 H (4.0-10.5) K/mm3 RBC 3.33 L (4.1-5.4) M/mm3 Hgb 6.9 L* (12.0-16.0) gm/dl Hct 24.8 L (35-47) % MCV 74.5 L (78-100) fl MCH 20.7 L (26-32) pg MCHC 27.8 L (32-36) g/dl RDW 19.0 H (11.5-14.0) % Plt Count 426 (150-450) K/mm3 MPV 10.7 H (6-9.5) fl Gran % 68.6 H (36.0-66.0) % Eos # (Auto) 0.25 (0-0.5) Absolute Lymphs (auto) 2.58 (1.0-4.6) Absolute Monos (auto) 0.51 (0.0-1.3) Lymphocytes % 23.5 L (24.0-44.0) % Monocytes % 4.6 (0.0-12.0) % Eosinophils % 2.3 (0.00-5.0) % Basophils % 1.0 (0.0-0.4) % Absolute Granulocytes 7.53 H (1.4-6.9) Basophils # 0.11 (0-0.4) PT (9.95-12.35) SECONDS INR (0.8-3.0) APTT (25.3-37.0) SECONDS Sodium 139 (137-145) mmol/L Potassium 4.0 (3.5-5.1) mmol/L Chloride 104 (98-107) mmol/L Carbon Dioxide 27 (22-30) mmol/L Anion Gap 12.5 (5-15) MEQ/L BUN 10 (7-17) mg/dL Creatinine 1.15 H (0.52-1.04) mg/dL Estimated GFR 56.1 ML/MIN Glucose 137 H (74-106) mg/dL Calcium 8.6 (8.4-10.2) mg/dL Total Bilirubin 0.20 (0.2-1.3) mg/dL AST 21 (14-36) U/L ALT 16 (0-35) U/L Alkaline Phosphatase 101 (38-126) U/L Serum Total Protein 7.4 (6.3-8.2) g/dL Albumin 4.0 (3.5-5.0) g/dL TSH 3rd Generation 53.500 H (0.47-4.68) mIU/L Stool Occult Bld Scrn (NEGATIVE) Slides for Path Review YES ABO Group Rh Factor Antibody Screen (NEGATIVE) Crossmatch (COMPATIBLE) 05/06/19 05/06/19 05/06/19 Range/Units 20:33 20:50 20:50 WBC (4.0-10.5) K/mm3 RBC (4.1-5.4) M/mm3 Hgb (12.0-16.0) gm/dl Hct (35-47) % MCV (78-100) fl MCH (26-32) pg MCHC (32-36) g/dl RDW (11.5-14.0) % Plt Count (150-450) K/mm3 MPV (6-9.5) fl Gran % (36.0-66.0) % Eos # (Auto) (0-0.5) Absolute Lymphs (auto) (1.0-4.6) Absolute Monos (auto) (0.0-1.3) Lymphocytes % (24.0-44.0) % Monocytes % (0.0-12.0) % Eosinophils % (0.00-5.0) % Basophils % (0.0-0.4) % Absolute Granulocytes (1.4-6.9) Basophils # (0-0.4) PT 12.6 H (9.95-12.35) SECONDS INR 1.11 (0.8-3.0) APTT 32.1 (25.3-37.0) SECONDS Sodium (137-145) mmol/L Potassium (3.5-5.1) mmol/L Chloride (98-107) mmol/L Carbon Dioxide (22-30) mmol/L Anion Gap (5-15) MEQ/L BUN (7-17) mg/dL Creatinine (0.52-1.04) mg/dL Estimated GFR ML/MIN Glucose (74-106) mg/dL Calcium (8.4-10.2) mg/dL Total Bilirubin (0.2-1.3) mg/dL AST (14-36) U/L ALT (0-35) U/L Alkaline Phosphatase (38-126) U/L Serum Total Protein (6.3-8.2) g/dL Albumin (3.5-5.0) g/dL TSH 3rd Generation (0.47-4.68) mIU/L Stool Occult Bld Scrn (NEGATIVE) Slides for Path Review ABO Group O Rh Factor POSITIVE Antibody Screen NEGATIVE (NEGATIVE) Crossmatch COMPATIBLE (COMPATIBLE) 05/06/19 05/06/19 05/07/19 Range/Units 20:50 21:38 05:05 WBC 10.5 (4.0-10.5) K/mm3 RBC 3.68 L (4.1-5.4) M/mm3 Hgb 8.2 L (12.0-16.0) gm/dl Hct 28.0 L (35-47) % MCV 76.1 L (78-100) fl MCH 22.2 L (26-32) pg MCHC 29.3 L (32-36) g/dl RDW 18.5 H (11.5-14.0) % Plt Count 382 (150-450) K/mm3 MPV 11.3 H (6-9.5) fl Gran % 62.2 (36.0-66.0) % Eos # (Auto) 0.24 (0-0.5) Absolute Lymphs (auto) 3.02 (1.0-4.6) Absolute Monos (auto) 0.63 (0.0-1.3) Lymphocytes % 28.8 (24.0-44.0) % Monocytes % 6.0 (0.0-12.0) % Eosinophils % 2.3 (0.00-5.0) % Basophils % 0.7 (0.0-0.4) % Absolute Granulocytes 6.51 (1.4-6.9) Basophils # 0.07 (0-0.4) PT (9.95-12.35) SECONDS INR (0.8-3.0) APTT (25.3-37.0) SECONDS Sodium (137-145) mmol/L Potassium (3.5-5.1) mmol/L Chloride (98-107) mmol/L Carbon Dioxide (22-30) mmol/L Anion Gap (5-15) MEQ/L BUN (7-17) mg/dL Creatinine (0.52-1.04) mg/dL Estimated GFR ML/MIN Glucose (74-106) mg/dL Calcium (8.4-10.2) mg/dL Total Bilirubin (0.2-1.3) mg/dL AST (14-36) U/L ALT (0-35) U/L Alkaline Phosphatase (38-126) U/L Serum Total Protein (6.3-8.2) g/dL Albumin (3.5-5.0) g/dL TSH 3rd Generation (0.47-4.68) mIU/L Stool Occult Bld Scrn NEGATIVE (NEGATIVE) Slides for Path Review ABO Group Rh Factor Antibody Screen (NEGATIVE) Crossmatch COMPATIBLE (COMPATIBLE) 05/07/19 Range/Units 05:05 WBC (4.0-10.5) K/mm3 RBC (4.1-5.4) M/mm3 Hgb (12.0-16.0) gm/dl Hct (35-47) % MCV (78-100) fl MCH (26-32) pg MCHC (32-36) g/dl RDW (11.5-14.0) % Plt Count (150-450) K/mm3 MPV (6-9.5) fl Gran % (36.0-66.0) % Eos # (Auto) (0-0.5) Absolute Lymphs (auto) (1.0-4.6) Absolute Monos (auto) (0.0-1.3) Lymphocytes % (24.0-44.0) % Monocytes % (0.0-12.0) % Eosinophils % (0.00-5.0) % Basophils % (0.0-0.4) % Absolute Granulocytes (1.4-6.9) Basophils # (0-0.4) PT (9.95-12.35) SECONDS INR (0.8-3.0) APTT (25.3-37.0) SECONDS Sodium 140 (137-145) mmol/L Potassium 3.5 (3.5-5.1) mmol/L Chloride 105 (98-107) mmol/L Carbon Dioxide 25 (22-30) mmol/L Anion Gap 13.7 (5-15) MEQ/L BUN 10 (7-17) mg/dL Creatinine 1.02 (0.52-1.04) mg/dL Estimated GFR > 60.0 ML/MIN Glucose 97 (74-106) mg/dL Calcium 7.9 L (8.4-10.2) mg/dL Total Bilirubin 1.00 (0.2-1.3) mg/dL AST 22 (14-36) U/L ALT 15 (0-35) U/L Alkaline Phosphatase 100 (38-126) U/L Serum Total Protein 6.8 (6.3-8.2) g/dL Albumin 3.6 (3.5-5.0) g/dL TSH 3rd Generation (0.47-4.68) mIU/L Stool Occult Bld Scrn (NEGATIVE) Slides for Path Review ABO Group Rh Factor Antibody Screen (NEGATIVE) Crossmatch (COMPATIBLE) - Radiology Exams Ordered Rad Exams-Entire Visit: Radiology Procedures Category Date Time Status PELVIC [US] Urgent Exams 05/07/19 11:51 Completed - Procedures and Test Procedures and Tests throughout Hospitalization: Therapy Orders & Screens 05/06/19 21:49 Respiratory Therapy Consult ROUTINE Comment: Reason For Exam: - Discharge Discharge Date: 05/07/19 Disposition: Home, Self-Care Condition: Stable Prescriptions: No Action Levothyroxine Sodium 100 Mcg [Synthroid 100 Mcg] 100 mcg PO DAILY Follow up with: DALIA GREENFIELD [Primary Care Provider] - 1 Week SAÚL FLEMING DO [ACTIVE STAFF] - 1 Week
== END 2019-05-07 14:15 | disposition home or self-care (01) ==
LOC: ED 19:56 → MED SURG 05-07 00:38
PROVIDERS: ADMIT General Practice; ATTEND General Practice
DX: D64.9 Anemia, unspecified (principal); N92.0 Excessive and frequent menstruation with regular cycle; E03.9 Hypothyroidism, unspecified
CPT/HCPCS: 36000; 36415; 36430; 76856; 80053; 82270; 84443; 85025; 85610; 85730; 86850; 86900; 86901; 86922; 94760; 96360; 99285; G0378; P9016

== ENCOUNTER 2019-05-20 07:05 | Day surgery (SDC) | payer BC ==
[2019-05-20] MEDS ORDERED: Lactated Ringers 0 ML IV ONE (07:47)
[2019-05-20] MEDS ORDERED: DIPRIVAN 200 MG/20 ML IV ONE ×2 (07:48→07:49)
[2019-05-20] MEDS ORDERED: SUBLIMAZE 100 MCG/2 ML ONE (07:49)
[2019-05-20] MEDS ORDERED: Lactated Ringers 1,000 ML IV SCH (08:00)
[2019-05-20] MEDS ORDERED: Decadron 4 MG INJ ONE (09:17)
[2019-05-20] MEDS ORDERED: Zofran 4 MG/2 ML VIAL ONE (09:17)
[2019-05-20] MEDS ORDERED: TORAdol 30 mg Injection ONE (09:18)
[2019-05-20 11:18] VITALS: BP 144/82; PULSE 80; O2SAT 96
--- NOTE | 2019-05-21 08:41 | OP ---
SURGERY DATE/TIME: 05/20/2019 0910 PREOPERATIVE DIAGNOSIS: Menorrhagia. POSTOPERATIVE DIAGNOSIS: Menorrhagia with endometrial polyp. PROCEDURE: Hysteroscopy, D&C with MyoSure polypectomy. SURGEON: Jose Mensah D.O. MOLECULAR BIOLOGY DIRECTOR: operating room surgical technician. ANESTHESIA: General sedation. ESTIMATED BLOOD LOSS: Minimal. COMPLICATIONS: None. INDICATIONS: The patient understood the risks and benefits of the procedure. The patient understood the risk of infection, bleeding, bowel injury, bladder injury, ureteral injury, uterine perforation, infection associated with this procedure and desires to have this procedure as a possible need to alleviate current medical condition. DESCRIPTION OF PROCEDURE AND FINDINGS: At this point the patient is taken to the operating room, given general sedation, placed in dorsal lithotomy position. Prepped and draped in usual sterile fashion. A weighted speculum is then placed in the patient's vagina and the anterior lip of the cervix is grasped with a single tooth tenaculum. Endocervical dilators were advanced to the endocervical canal to dilate the cervix. The uterus was sounded to approximately 10 cm. At this point the patient was noted to have an anteverted uterus. At this point a 5.5 mm hysteroscope is then placed through the endocervical canal into the intrauterine region where it was noted for her to have in the distal region of the uterus approximately 1 x 1 cm endometrial polyp emanating from the anterior region of the uterus. From this point the remainder of the uterine cavity appeared to be within normal limits with no gross abnormalities. At this the MyoSure was then introduced into the sleeve of the hysteroscope and the MyoSure was used to excise the endometrial polyp in its entirety without complication. There is at this point was a deficit of 275 cc of fluid that was noted at the completion of the hysteroscopy. The hysteroscope was then removed from the patient's uterine cavity. After removing the hysteroscope, a curette was then placed into the fundus of the uterus where curettage was performed in all quadrants of the uterus retrieving a mild to moderate amount of tissue. From this point after completion of the curettage, all instruments were then removed from the patient's vaginal region. The patient was then taken out of the dorsal lithotomy position and was then taken out of anesthesia and taken to the recovery room in stable condition. All instruments were accounted for x3. The timing for the MyoSure used approximately 11 seconds. Again, the deficit was 275 cc. The patient appeared to be in stable condition after getting out of anesthesia and was again taken to the recovery room in stable condition without complication.
== END 2019-05-20 11:20 | disposition home or self-care (01) ==
LOC: SDC 07:05
PROVIDERS: ATTEND Obstetrics & Gynecology
DX: N92.0 Excessive and frequent menstruation with regular cycle (principal); N84.0 Polyp of corpus uteri
CPT/HCPCS: 36415; 84702; 88305; J1100; J1885; J2405; J2704; J3010

== ENCOUNTER 2019-06-03 07:41 | Day surgery (SDC) | payer BC ==
[~2019-06-03 07:41] MED LIST: CEFAZOLIN 2 GM-D5W BAG** 2 GM/50 ML ML IV ONE; Lactated Ringers 1,000 ML IV SCH
[2019-06-03] MEDS ORDERED: Lactated Ringers 1,000 ML IV ONE (07:55)
[2019-06-03] MEDS ORDERED: DIPRIVAN 200 MG/20 ML IV ONE (08:45)
[2019-06-03] MEDS ORDERED: SUBLIMAZE 100 MCG/2 ML ONE (08:45)
[2019-06-03] MEDS ORDERED: TORAdol 30 mg Injection ONE (10:08)
[2019-06-03] MEDS ORDERED: Zofran 4 MG/2 ML VIAL ONE (10:08)
[2019-06-03] MEDS ORDERED: Decadron 4 MG INJ ONE (10:08)
[2019-06-03 11:23] VITALS: O2SAT 95
[2019-06-03 11:36] VITALS: BP 148/86; PULSE 80
--- NOTE | 2019-06-04 11:37 | OP ---
SURGERY DATE/TIME: 06/03/2019 0957 PREOPERATIVE DIAGNOSIS: Menorrhagia. POSTOPERATIVE DIAGNOSIS: Menorrhagia. PROCEDURE: D&C with Novasure ablation. SURGEON: Jose Mensah D.O. TOUCH UP PAINTER: news technical director. ANESTHESIA: General. ESTIMATED BLOOD LOSS: Minimal. COMPLICATIONS: None. INDICATIONS: The risks, benefits, indications and alternatives of the procedure were reviewed with the patient. The patient understood the risk of infection, bleeding, bowel injury, bladder injury, ureteral injury, uterine perforation, pelvic infection associated with the surgery. All risks associated with the surgery were discussed with the patient. The patient desires to have this procedure as a possible need to alleviate her current medical condition. DESCRIPTION OF PROCEDURE AND FINDINGS: At this point the patient is taken to the operating room, given general sedation, placed in dorsal lithotomy position. Prepped and draped in the usual sterile fashion. A weighted speculum is then placed in the patient's vagina and the anterior lip of the cervix is grasped with a single tooth tenaculum. Endocervical dilators were advanced to the endocervical canal as a means to dilate the cervix and the uterus was sounded to approximately 10 cm. From this point a curette was then placed into the fundus of the uterus and curettage was performed in all quadrants of the uterus retrieving a mild to moderate amount of endometrial tissue. From this point there was no bleeding that was noted. From this point the Novasure instrument was then brought about and was measured at a length of 6.5 cm and the width was 2.9 cm and the Novasure was then engaged into the endocervical canal towards the fundal region where it was displaced approximately 1 cm and engaged thereafter and the machine was turned on for approximately 90 seconds. After the machine was turned on for 90 seconds of ablated time, it was subsequently disengaged and the Novasure was removed from the uterine cavity without complication. The power was turned on 104. From this point the instruments were then removed from the patient's vaginal region. The patient was then taken out of the dorsal lithotomy position and was then taken to the recovery room in stable condition. All instruments and laps were accounted for x2.
== END 2019-06-03 11:30 | disposition home or self-care (01) ==
LOC: SDC 07:41 → EDSTATUS 16:16
PROVIDERS: ATTEND Obstetrics & Gynecology
DX: N92.0 Excessive and frequent menstruation with regular cycle (principal)
CPT/HCPCS: J0690; J1100; J1885; J2405; J2704; J3010

== ENCOUNTER 2021-02-08 07:58 | Inpatient (IN) | payer BC ==
[~2021-02-08 07:58] MED LIST changes: -CEFAZOLIN 2 GM-D5W BAG** 2 GM/50 ML ML IV ONE; +Lactated Ringers 1,000 ML IV ONE; -Lactated Ringers 1,000 ML IV SCH
[2021-02-08] MEDS ORDERED: Lactated Ringers 1,000 ML IV ONE ×2 (08:24→11:57)
[2021-02-08] MEDS ORDERED: CEFAZOLIN 2 GM-D5W BAG** 2 GM/50 ML ML IV ONE (08:24)
[2021-02-08] MEDS ORDERED: Lactated Ringers 1,000 ML IV SCH (08:30)
[2021-02-08] MEDS ORDERED: CEFAZOLIN 2 GM-D5W BAG** 2 GM/50 ML ML IV SCH (08:30)
[2021-02-08 08:52] LABS: Hematocrit 45.6 % (35-47); Hemoglobin 14.9 gm/dl (12.0-16.0); Mean Cell Volume 91.2 fl (78-100); Mean Corpuscular Hemoglobin 29.8 pg (26-32); Mean Corpuscular Hgb Concent. 32.7 g/dl (32-36); Mean Platelet Volume 10.6 fl (7.5-11.0); Platelet Count 303 K/mm3 (150-450); White Blood Count 9.7 K/mm3 (4.0-10.5)
[2021-02-08 09:19] LABS: ALKALINE PHOSPHATASE 101 U/L (38-126); BLOOD UREA NITROGEN 15 mg/dL (7-17); CHLORIDE 103 mmol/L (98-107); Carbon Dioxide 30 mmol/L (22-30); Creatinine 1 0.81 mg/dL (0.52-1.04); EST GLOMERULAR FILTRATION RATE > 60.0 ML/MIN; Glucose 85 mg/dL (74-106); HCG, Quantitative (Inhouse) < 2.39 mIU/ml; Potassium 4.1 mmol/L (3.5-5.1); SGOT/AST 22 U/L (14-36); SGPT/ALT 17 U/L (0-35); SODIUM 140 mmol/L (137-145); Total Protein 7.4 g/dL (6.3-8.2)
[2021-02-08 09:24] LABS: ABO TYPING O; Antibody Screen NEGATIVE (NEGATIVE); RH TYPING POSITIVE
[2021-02-08] MEDS ORDERED: TORAdol 30 mg Injection ONE (09:25)
[2021-02-08] MEDS ORDERED: Zemuron 100 MG/10 ML ONE (09:25)
[2021-02-08] MEDS ORDERED: SUBLIMAZE 100 MCG/2 ML ONE (09:25)
[2021-02-08] MEDS ORDERED: Decadron 4 MG INJ ONE (09:25)
[2021-02-08] MEDS ORDERED: Zofran 4 MG/2 ML VIAL ONE (09:25)
[2021-02-08] MEDS ORDERED: DIPRIVAN 200 MG/20 ML IV ONE (09:25)
[2021-02-08] MEDS ORDERED: Versed 2 MG/2 ML Injection ONE (09:26)
[2021-02-08] MEDS ORDERED: VERSED 5 MG/5 ML ONE (10:21)
[2021-02-08] MEDS ORDERED: Astramorph-Pf 5 MG/10 ML ONE (10:40)
[2021-02-08] MEDS ORDERED: Marcaine 0.5%/Epinephrine 10 ML ONE ×2 (12:46→12:48)
[2021-02-08] MEDS ORDERED: MORPHINE SULFATE 2 MG INJ ONE (13:56)
[2021-02-08 15:16] LABS: Appearance CLEAR (CLEAR); Bilirubin NEGATIVE (NEGATIVE); Blood NEGATIVE Ery/ul (0-5); Glucose NEGATIVE (NEGATIVE); Ketones NEGATIVE (NEGATIVE); Leukocyte Esterase NEGATIVE (NEGATIVE); Nitrite NEGATIVE (NEGATIVE); Protein,Urine Dip NEGATIVE (Negative); Specific Gravity 1.009 (1.005-1.025); Urobilinogen NEGATIVE mg/dL (0-1)
[2021-02-08] MEDS ORDERED: Zofran 4 MG/2 ML VIAL IV PRN ×2 (15:59→16:00)
[2021-02-08] MEDS ORDERED: BENADRYL 50 MG/ML IV PRN (16:00)
[2021-02-08] MEDS ORDERED: DEMEROL 50 MG IV PRN (16:00)
[2021-02-08] MEDS ORDERED: Nubain 10 MG/ML IV PRN (16:00)
[2021-02-08] MEDS ORDERED: CLARITIN 10 MG PO PRN (16:00)
[2021-02-08] MEDS ORDERED: TORAdol 30 mg Injection IV PRN (16:00)
[2021-02-08] MEDS ORDERED: Sodium Chloride 0.9% 10 ML FLUSH Syringe IJ PRN (16:00)
[2021-02-08] MEDS ORDERED: MORPHINE SULFATE 2 MG INJ IV PRN (16:00)
[2021-02-08] MEDS ORDERED: Narcan 0.4 MG/ML IV PRN (16:00)
[2021-02-08] MEDS: SYNTHROID 150 MCG PO SCH (16:17)
[2021-02-08] MEDS: Mylicon 80MG PO SCH ×2 (16:17→22:02)
[2021-02-08] MEDS: FEOSOL 325 MG PO SCH ×2 (16:17→22:02)
[2021-02-08] MEDS: CEFAZOLIN 2 GM-D5W BAG** 2 GM/50 ML ML IV SCH (16:18)
[2021-02-08] MEDS: Lactated Ringers 1,000 ML IV SCH (16:18)
[2021-02-08] MEDS: Reglan 10 MG/2 ML IV SCH ×2 (16:23→22:02)
[2021-02-08 18:03] LABS: Hematocrit 46.4 % (35-47); Mean Cell Volume 92.1 fl (78-100); Mean Corpuscular Hemoglobin 29.8 pg (26-32); Mean Corpuscular Hgb Concent. 32.3 g/dl (32-36); Mean Platelet Volume 10.8 fl (7.5-11.0); Platelet Count 331 K/mm3 (150-450); Red Blood Count 5.04 M/mm3 (4.1-5.4); Red Cell Distribution Width 12.8 % (11.5-14.0); White Blood Count 20.8 K/mm3 (4.0-10.5)
[2021-02-08] MEDS: Colace 100 MG PO SCH (22:02)
[2021-02-08] MEDS: PERCOCET TABLET 5/325MG PO PRN (22:12)
[2021-02-09] MEDS: Lactated Ringers 1,000 ML IV SCH (00:10)
[2021-02-09] MEDS: CEFAZOLIN 2 GM-D5W BAG** 2 GM/50 ML ML IV SCH (00:11)
[2021-02-09] MEDS: PERCOCET TABLET 5/325MG PO PRN ×2 (03:57→11:50)
[2021-02-09 05:16] LABS: Hematocrit 39.2 % (35-47); Hemoglobin 12.7 gm/dl (12.0-16.0); Mean Cell Volume 92.5 fl (78-100); Mean Corpuscular Hgb Concent. 32.4 g/dl (32-36); Mean Platelet Volume 10.7 fl (7.5-11.0); Platelet Count 332 K/mm3 (150-450); Red Blood Count 4.24 M/mm3 (4.1-5.4); Red Cell Distribution Width 12.6 % (11.5-14.0); White Blood Count 20.7 K/mm3 (4.0-10.5)
[2021-02-09 05:31] LABS: ALBUMIN 3.1 g/dL (3.5-5.0); ALKALINE PHOSPHATASE 76 U/L (38-126); ANION GAP 11.2 MEQ/L (5-15); BLOOD UREA NITROGEN 11 mg/dL (7-17); CHLORIDE 99 mmol/L (98-107); Carbon Dioxide 28 mmol/L (22-30); Creatinine 1 0.71 mg/dL (0.52-1.04); EST GLOMERULAR FILTRATION RATE > 60.0 ML/MIN; Glucose 109 mg/dL (74-106); Potassium 3.9 mmol/L (3.5-5.1); SGOT/AST 23 U/L (14-36); SGPT/ALT 15 U/L (0-35); SODIUM 134 mmol/L (137-145); Total Protein 6.1 g/dL (6.3-8.2)
[2021-02-09] MEDS: Reglan 10 MG/2 ML IV SCH ×4 (05:37→21:29)
[2021-02-09] MEDS: Mylicon 80MG PO SCH ×3 (05:37→21:20)
--- NOTE | 2021-02-09 08:08 | PCM.NOTE ---
Date and Time: 02/09/2104 Subjective Assessment: POD 1 SP LAPAROTOMY SUPRACERVICAL HYSTERECTOMY B/L SALPINGECTOMY PT RESTING IN BED HOWEVER ABLE TO TOLERATE DIET AND AMBULATE. VSS AFEBRILE ABD; SOFT, INCISION C/D/INTACT ND EXT; NO CLUBBING CYANOSIS OR EDEMA HGB; 12.7 WBC 20 A/P SP LAPAROTOMY SUPRACERVICAL HYSTERECTOMY B/L SALPINGECTOMY LYSIS OF ADHESI ONS WILL REPEAT CBC AT 2 PM TODAY DOING WELL PT ANXIOUS TO GO HOME TODAY WILL REEVALUATE THIS AFTERNOON IF OK TO DISCHARGE Objective Exam Wound Assessment: Skin/Wound Assessment Wound/Incision Assessment Start: 02/08/21 13:10 Text: Status: Active Freq: Q4H Protocol: Document 02/09/21 04:00 MS (Rec: 02/09/21 04:36 MS [id number]) Wound/Incision Assessment Transverse Suprapubic Wound Assessment Shift Assessment Wound Type Incision Wound Stage Non Pressure Wound Drainage Amount None General Appearance Well Approximated,Asymptomatic ,Open to air,Clean/Dry Surrounding Tissue [place] Wound Photo Photo Taken No OBJECTIVE DATA Vital Signs: Vital Signs - 24 hr Temp Pulse Resp BP Pulse Ox 02/09/21 08:02 98 02/09/21 04:00 97.8 F 90 16 123/81 99 02/09/21 00:00 20 02/08/21 23:37 97.4 F 85 20 125/70 96 02/08/21 23:13 94 L 02/08/21 20:59 93 L 02/08/21 20:33 98.0 F 90 18 119/67 96 02/08/21 20:00 18 02/08/21 15:40 97.9 F 76 16 117/69 93 L 02/08/21 15:05 87 16 111/62 98 02/08/21 14:40 76 18 117/69 96 02/08/21 14:34 97.9 F 77 14 129/79 96 02/08/21 14:33 97.6 F 93 H 16 115/63 98 02/08/21 14:30 97.9 F 77 16 129/79 93 L 02/08/21 08:33 97.2 F 91 H 16 154/96 96 02/08/21 08:19 97.2 F 91 H 16 154/96 96 Pain Assessment - Last Documented Pain Intensity 0 Pain Scale Used 0-10 Pain Scale Intake and Output: Intake & Output 02/06/21 02/07/21 02/08/21 02/09/21 11:59 11:59 11:59 11:59 Intake Total 2979 Output Total 1425 Balance 1554 Weight 100.3 kg 104.1 kg Lab Results: Lab Results-Last 24 Hours 02/08/21 02/08/21 02/08/21 Range/Units 08:35 08:35 08:35 WBC 9.7 (4.0-10.5) K/mm3 RBC 5.00 (4.1-5.4) M/mm3 Hgb 14.9 (12.0-16.0) gm/dl Hct 45.6 (35-47) % MCV 91.2 (78-100) fl MCH 29.8 (26-32) pg MCHC 32.7 (32-36) g/dl RDW 13.0 (11.5-14.0) % Plt Count 303 (150-450) K/mm3 MPV 10.6 (7.5-11.0) fl Sodium 140 (137-145) mmol/L Potassium 4.1 (3.5-5.1) mmol/L Chloride 103 (98-107) mmol/L Carbon Dioxide 30 (22-30) mmol/L Anion Gap 11.0 (5-15) MEQ/L BUN 15 (7-17) mg/dL Creatinine 0.81 (0.52-1.04) mg/dL Estimated GFR > 60.0 ML/MIN Glucose 85 (74-106) mg/dL Calcium 9.0 (8.4-10.2) mg/dL Total Bilirubin 0.20 (0.2-1.3) mg/dL AST 22 (14-36) U/L ALT 17 (0-35) U/L Alkaline Phosphatase 101 (38-126) U/L Serum Total Protein 7.4 (6.3-8.2) g/dL Albumin 4.0 (3.5-5.0) g/dL Beta HCG, Quant < 2.39 mIU/ml Urine Color (YELLOW) Urine Appearance (CLEAR) Urine pH (5-6) Ur Specific [place] (1.005-1.025) Urine Protein (Negative) Urine Ketones (NEGATIVE) Urine Blood (0-5) [place]phonso/ul Urine Nitrite (NEGATIVE) Urine Bilirubin (NEGATIVE) Urine Urobilinogen (0-1) mg/dL Ur Leukocyte Esterase (NEGATIVE) Urine WBC (Auto) (0-5) /HPF Urine RBC (Auto) (0-2) /HPF U Epithel Cells (Auto) (FEW) /HPF Urine Bacteria (Auto) (NEGATIVE) /HPF Urine Glucose (NEGATIVE) mg/dL ABO Group O Rh Factor POSITIVE Antibody Screen NEGATIVE (NEGATIVE) 02/08/21 02/08/21 02/09/21 Range/Units 11:18 17:36 04:20 WBC 20.8 H 20.7 H (4.0-10.5) K/mm3 RBC 5.04 4.24 (4.1-5.4) M/mm3 Hgb 15.0 12.7 (12.0-16.0) gm/dl Hct 46.4 39.2 (35-47) % MCV 92.1 92.5 (78-100) fl MCH 29.8 30.0 (26-32) pg MCHC 32.3 32.4 (32-36) g/dl RDW 12.8 12.6 (11.5-14.0) % Plt Count 331 332 (150-450) K/mm3 MPV 10.8 10.7 (7.5-11.0) fl Sodium (137-145) mmol/L Potassium (3.5-5.1) mmol/L Chloride (98-107) mmol/L Carbon Dioxide (22-30) mmol/L Anion Gap (5-15) MEQ/L BUN (7-17) mg/dL Creatinine (0.52-1.04) mg/dL Estimated GFR ML/MIN Glucose (74-106) mg/dL Calcium (8.4-10.2) mg/dL Total Bilirubin (0.2-1.3) mg/dL AST (14-36) U/L ALT (0-35) U/L Alkaline Phosphatase (38-126) U/L Serum Total Protein (6.3-8.2) g/dL Albumin (3.5-5.0) g/dL Beta HCG, Quant mIU/ml Urine Color STRAW (YELLOW) Urine Appearance CLEAR (CLEAR) Urine pH 8.0 (5-6) Ur Specific [place] 1.009 (1.005-1.025) Urine Protein NEGATIVE (Negative) Urine Ketones NEGATIVE (NEGATIVE) Urine Blood NEGATIVE (0-5) Alphonso/ul Urine Nitrite NEGATIVE (NEGATIVE) Urine Bilirubin NEGATIVE (NEGATIVE) Urine Urobilinogen NEGATIVE (0-1) mg/dL Ur Leukocyte Esterase NEGATIVE (NEGATIVE) Urine WBC (Auto) NONE (0-5) /HPF Urine RBC (Auto) NONE (0-2) /HPF U Epithel Cells (Auto) NONE (FEW) /HPF Urine Bacteria (Auto) NONE (NEGATIVE) /HPF Urine Glucose NEGATIVE (NEGATIVE) mg/dL ABO Group Rh Factor Antibody Screen (NEGATIVE) 02/09/21 Range/Units 04:20 WBC (4.0-10.5) K/mm3 RBC (4.1-5.4) M/mm3 Hgb (12.0-16.0) gm/dl Hct (35-47) % MCV (78-100) fl MCH (26-32) pg MCHC (32-36) g/dl RDW (11.5-14.0) % Plt Count (150-450) K/mm3 MPV (7.5-11.0) fl Sodium 134 L (137-145) mmol/L Potassium 3.9 (3.5-5.1) mmol/L Chloride 99 (98-107) mmol/L Carbon Dioxide 28 (22-30) mmol/L Anion Gap 11.2 (5-15) MEQ/L BUN 11 (7-17) mg/dL Creatinine 0.71 (0.52-1.04) mg/dL Estimated GFR > 60.0 ML/MIN Glucose 109 H (74-106) mg/dL Calcium 8.0 L (8.4-10.2) mg/dL Total Bilirubin 0.20 (0.2-1.3) mg/dL AST 23 (14-36) U/L ALT 15 (0-35) U/L Alkaline Phosphatase 76 (38-126) U/L Serum Total Protein 6.1 L (6.3-8.2) g/dL Albumin 3.1 L (3.5-5.0) g/dL Beta HCG, Quant mIU/ml Urine Color (YELLOW) Urine Appearance (CLEAR) Urine pH (5-6) Ur Specific [place] (1.005-1.025) Urine Protein (Negative) Urine Ketones (NEGATIVE) Urine Blood (0-5) Alphonso/ul Urine Nitrite (NEGATIVE) Urine Bilirubin (NEGATIVE) Urine Urobilinogen (0-1) mg/dL Ur Leukocyte Esterase (NEGATIVE) Urine WBC (Auto) (0-5) /HPF Urine RBC (Auto) (0-2) /HPF U Epithel Cells (Auto) (FEW) /HPF Urine Bacteria (Auto) (NEGATIVE) /HPF Urine Glucose (NEGATIVE) mg/dL ABO Group Rh Factor Antibody Screen (NEGATIVE) Multi-Disciplinary Progress Notes: Multi-Disciplinary Progress Notes 02/09/21 00:50 Respiratory Note by Terrance Calderón PER SMELTER OPERATOR 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 SHE STATED THAT IT WAS 87%. I ASKED SMELTER OPERATOR TO GO AHEAD AND PLACE PT BACK ON 2LPM FOR THE NIGHT. Initialized on 02/09/21 00:50 - END OF NOTE Assessment/Plan (1) H/O abdominal supracervical subtotal hysterectomy Current Visit: Yes Status: Acute Code(s): Z90.711 - ACQUIRED ABSENCE OF UTERUS WITH REMAINING CERVICAL STUMP
[2021-02-09] MEDS: ENOXAPARIN SODIUM SQ SCH (08:10)
[2021-02-09] MEDS: SYNTHROID 150 MCG PO SCH (09:13)
[2021-02-09] MEDS: Colace 100 MG PO SCH ×2 (09:13→21:20)
[2021-02-09] MEDS: FEOSOL 325 MG PO SCH ×3 (09:13→21:20)
--- NOTE | 2021-02-09 09:58 | OP ---
SURGERY DATE/TIME: 02/08/2021 1036 PREOPERATIVE DIAGNOSIS: Menorrhagia, dysmenorrhea, cervical dysplasia as well as abnormal uterine bleeding. POSTOPERATIVE DIAGNOSIS: Menorrhagia, dysmenorrhea, cervical dysplasia as well as abnormal uterine bleeding with pelvic adhesions. PROCEDURES: 1) Laparotomy supracervical hysterectomy. 2) Bilateral salpingectomy. SURGEON: Jose Mensah D.O. ANESTHESIA: General. ESTIMATED BLOOD LOSS: 100 cc. COMPLICATIONS: None. INDICATIONS: The risks, benefits, indications and alternatives of the procedure were reviewed with the patient prior to procedure. The patient understood the risk of infection, bleeding, bowel injury, bladder injury, ureteral injury, pelvic infection, thromboembolic disorder associated with the surgery and desires to have this procedure as a possible means to alleviate her current medical condition. DESCRIPTION OF PROCEDURE AND FINDINGS: At this point the patient is taken to the operating room, placed in the supine position, given general anesthesia, prepared and draped in the usual sterile fashion. A Pfannenstiel incision was made approximately 2 cm above the symphysis pubis and extended sharply to the rectus fascia. The fascia was then incised bilaterally with curved Ordonez scissors and the muscles of the anterior abdominal wall in the midline by sharp and blunt dissection. The peritoneum was grasped between two pickups elevated and entered sharply with Metzenbaum scissors. The pelvis is then examined and noted to have a 12 week size uterus with extensive adhesions between the lower uterine segment and scarring from the section. From this point O'Yossi-O'Vila retractor was placed into the incision and the bowel packed away with moist laparotomy sponges. Two Dora clamps were placed on the cornua and used for retraction. From this point the round ligament on both sides were clamped, transected and suture ligated with 0 Vicryl suture. The anterior lip of the broad ligament was then incised allowing bladder resection to the midline on both sides. The bladder was gently dissected off the lower uterine segment and the cervix with a sponge stick and meticulous dissection with Metzenbaum scissors. The utero-ovarian ligaments were clamped on both sides, coagulated and cut using LigaSure. From this point the uterine arteries were skeletonized bilaterally, clamped, coagulated and cut using LigaSure. From this point due to the extensive adhesions between the lower uterine segment, the cervical stump and the attachment of the bladder, it was decided at this point to forego removing the cervix and amputating the uterus from the cervical stump which was done with cautery and was done so without complication. The bilateral fallopian tubes were excised using LigaSure and was done so without complications. The ovaries appeared to be within normal limits and were not removed during the procedure. From this point the cervix was then closed with a series of interrupted 0 Vicryl suture. Hemostasis was obtained. At this point the pelvis is then irrigated copiously with warm normal saline. All lap, needle, instruments were removed from the patient's abdomen. From this point the fascia was closed with looped 0 PDS suture and the muscles were closed with 2-0 chromic suture. The subcutaneous layer was closed in two layers with 3-0 Vicryl suture and the skin was closed with absorbable hal called INSORB. Sponge, lap, needle and instrument counts were correct x2. The patient was then taken to the recovery room in stable condition.
[2021-02-09] MEDS ORDERED: HOLD NARCOTIC ANALGESICS AND SEDATIVES X24 HR MC SCH (10:00)
[2021-02-09 13:47] LABS: Absolute Neutrophil Ct (ANC) 16.97 (1.4-6.9); Basophil (Absolute #) 0 (0-0.4); Eosinophil % 0.1 % (0.00-5.0); Eosinophil (Absolute #) 0.02 (0-0.5); Hematocrit 38.1 % (35-47); Hemoglobin 12.4 gm/dl (12.0-16.0); Lymphocyte (Absolute #) 2.92 (1.0-4.6); Lymphocytes % 13.7 % (24.0-44.0); Mean Cell Volume 92.5 fl (78-100); Mean Corpuscular Hemoglobin 30.1 pg (26-32); Mean Corpuscular Hgb Concent. 32.5 g/dl (32-36); Mean Platelet Volume 10.4 fl (7.5-11.0); Monocytes % 6.6 % (0.0-12.0); Neutrophil % 79.6 % (36.0-66.0); Platelet Count 339 K/mm3 (150-450); Red Blood Count 4.12 M/mm3 (4.1-5.4); Red Cell Distribution Width 12.7 % (11.5-14.0); White Blood Count 21.3 K/mm3 (4.0-10.5)
[2021-02-09] MEDS ORDERED: Sodium Chloride 0.9% 1000 ML 1,000 ML IV SCH (15:00)
[2021-02-09] MEDS: OMNIPEN 2 GM*** 2 G in Sodium Chloride 100ML MINI-BAG PLUS 100 ML IV SCH ×2 (16:05→21:21)
[2021-02-09] MEDS: GENTAMICIN 80 MG/50 ML PREMIX*** 80 MG/50 ML ML IV SCH ×2 (17:01→23:35)
[2021-02-09] MEDS ORDERED: Dulcolax 10 MG SUPP PR ONE (17:06)
[2021-02-09] MEDS: CLINDAMYCIN-D5W 900 MG/50 ML*** 900 MG/50 ML BAG IV SCH (17:42)
[2021-02-10] MEDS: CLINDAMYCIN-D5W 900 MG/50 ML*** 900 MG/50 ML BAG IV SCH ×3 (00:05→17:05)
[2021-02-10] MEDS: OMNIPEN 2 GM*** 2 G in Sodium Chloride 100ML MINI-BAG PLUS 100 ML IV SCH ×3 (02:22→15:20)
[2021-02-10 05:14] LABS: Absolute Neutrophil Ct (ANC) 10.61 (1.4-6.9); BASOPHIL % 0.2 % (0.0-0.4); Basophil (Absolute #) 0.03 (0-0.4); Eosinophil % 0.5 % (0.00-5.0); Eosinophil (Absolute #) 0.07 (0-0.5); Hematocrit 37.6 % (35-47); Hemoglobin 11.9 gm/dl (12.0-16.0); Lymphocyte (Absolute #) 3.03 (1.0-4.6); Lymphocytes % 20.7 % (24.0-44.0); Mean Cell Volume 93.5 fl (78-100); Mean Corpuscular Hemoglobin 29.6 pg (26-32); Mean Corpuscular Hgb Concent. 31.6 g/dl (32-36); Mean Platelet Volume 10.7 fl (7.5-11.0); Monocyte (Absolute #) 0.92 (0.0-1.3); Monocytes % 6.3 % (0.0-12.0); Neutrophil % 72.3 % (36.0-66.0); Platelet Count 295 K/mm3 (150-450); Red Blood Count 4.02 M/mm3 (4.1-5.4); White Blood Count 14.7 K/mm3 (4.0-10.5)
[2021-02-10 05:54] LABS: ALBUMIN 3.2 g/dL (3.5-5.0); ALKALINE PHOSPHATASE 80 U/L (38-126); ANION GAP 7.2 MEQ/L (5-15); BLOOD UREA NITROGEN 7 mg/dL (7-17); CHLORIDE 104 mmol/L (98-107); Calcium 7.6 mg/dL (8.4-10.2); Carbon Dioxide 31 mmol/L (22-30); Creatinine 1 0.64 mg/dL (0.52-1.04); EST GLOMERULAR FILTRATION RATE > 60.0 ML/MIN; Glucose 99 mg/dL (74-106); Potassium 3.9 mmol/L (3.5-5.1); SGOT/AST 28 U/L (14-36); SGPT/ALT 15 U/L (0-35); SODIUM 138 mmol/L (137-145); Total Protein 6.1 g/dL (6.3-8.2)
--- NOTE | 2021-02-10 06:44 | XRAY ---
Exam: Two-view chest from 02/09/2021. Comparison: Two-view chest from 05/06/2019. Indication: Cough for several weeks. Findings: Upright PA and lateral chest films are submitted for evaluation. The heart size is normal. The enrike and mediastinal structures appear intact. There is a small calcified granuloma at the anterior left lung base. No infiltrates, vascular congestion, pneumothorax, or pleural fluid is seen. There is slight convexity of the upper mid thoracic spine toward the right and mild lower thoracic levoscoliosis representing no change. Impression: 1. No air space infiltrates to suggest pneumonia or other acute cardiopulmonary disease is seen. 2. Other incidental findings, as discussed above.
[2021-02-10] MEDS: Reglan 10 MG/2 ML IV SCH ×2 (06:47→14:28)
[2021-02-10] MEDS: Mylicon 80MG PO SCH ×2 (06:47→14:26)
[2021-02-10] MEDS: GENTAMICIN 80 MG/50 ML PREMIX*** 80 MG/50 ML ML IV SCH ×2 (08:26→16:04)
[2021-02-10] MEDS: ENOXAPARIN SODIUM SQ SCH (08:27)
--- NOTE | 2021-02-10 08:27 | PCM.NOTE ---
Date and Time: 02/10/21821 Subjective Assessment: POD 2 SP LAPAROTOMY SUPRACERVICAL HYSTERECTOMY PT RESTING IN BED AND DOING WELL ABLE TO AMBULATE AND TOLERATE DIET. PT HAD BM YESTERDAY. PT WAS NOTED HAVING ELEVATED WBC YESTERDAY AND TODAY MUCH IMPROVED. 160/98 YESTERDAY ABD; SOFT INCISION C/D/INTACT EXT; NO CLUBBING CYANOSIS OR EDEMA FREE T4 ; 2.3 WBC; 14 A/P SP LAPAROTOMY SUPRACERVICAL HYSTERECTOMY B/L SALPINGECTOMY LEUKOCYTOSIS IMPROVING HTN HYPERTHYROID IV ANTIBIOTICS STARTED YESTERDAY AND WILL CONTINUE IV ANTIBIOTICS FOR COMPLETION OF 24 HRS AT 5 PM WILL DC HOME ON PO ANTIBIOTICS WILL START LISINOPRIL 10MG DAILY WILL DC HOME ON [place] Objective Exam Wound Assessment: Skin/Wound Assessment Wound/Incision Assessment Start: 02/08/21 13:10 Text: Status: Active Freq: Q4H Protocol: Document 02/10/21 04:00 ST (Rec: 02/10/21 04:18 ST [id number]) Wound/Incision Assessment Transverse Suprapubic Wound Assessment Shift Assessment Wound Type Incision Wound Stage Non Pressure Wound Drainage Amount None General Appearance Well Approximated,Asymptomatic ,Open to air,Clean/Dry Surrounding Tissue [place] Wound Photo Photo Taken No OBJECTIVE DATA Vital Signs: Vital Signs - 24 hr Temp Pulse Resp BP Pulse Ox 02/10/21 07:55 98.5 F 85 20 171/97 99 02/10/21 04:00 98.1 F 86 20 152/95 98 02/10/21 00:00 98.1 F 90 20 156/98 99 02/09/21 22:42 99 02/09/21 20:00 98.4 F 96 H 18 160/81 99 02/09/21 16:00 97.9 F 96 H 16 164/88 98 02/09/21 12:00 98.2 F 86 16 141/84 99 Pain Assessment - Last Documented Pain Intensity 4 Pain Scale Used 0-10 Pain Scale Intake and Output: Intake & Output 02/07/21 02/08/21 02/09/21 02/10/21 11:59 11:59 11:59 11:59 Intake Total 2979 780 Output Total 1975 2 Balance 1004 778 Weight 100.3 kg 104.1 kg Lab Results: Lab Results-Last 24 Hours 07/14/21 07/15/21 07/15/21 Range/Units 13:43 04:53 04:53 WBC 21.3 H 14.7 H (4.0-10.5) K/mm3 RBC 4.12 4.02 L (4.1-5.4) M/mm3 Hgb 12.4 11.9 L (12.0-16.0) gm/dl Hct 38.1 37.6 (35-47) % MCV 92.5 93.5 (78-100) fl MCH 30.1 29.6 (26-32) pg MCHC 32.5 31.6 L (32-36) g/dl RDW 12.7 13.0 (11.5-14.0) % Plt Count 339 295 (150-450) K/mm3 MPV 10.4 10.7 (7.5-11.0) fl Gran % 79.6 H 72.3 H (36.0-66.0) % Eos # (Auto) 0.02 0.07 (0-0.5) Absolute Lymphs (auto) 2.92 3.03 (1.0-4.6) Absolute Monos (auto) 1.40 H 0.92 (0.0-1.3) Lymphocytes % 13.7 L 20.7 L (24.0-44.0) % Monocytes % 6.6 6.3 (0.0-12.0) % Eosinophils % 0.1 0.5 (0.00-5.0) % Basophils % 0.0 0.2 (0.0-0.4) % Absolute Granulocytes 16.97 H 10.61 H (1.4-6.9) Basophils # 0 0.03 (0-0.4) Sodium 138 (137-145) mmol/L Potassium 3.9 (3.5-5.1) mmol/L Chloride 104 (98-107) mmol/L Carbon Dioxide 31 H (22-30) mmol/L Anion Gap 7.2 (5-15) MEQ/L BUN 7 (7-17) mg/dL Creatinine 0.64 (0.52-1.04) mg/dL Estimated GFR > 60.0 ML/MIN Glucose 99 (74-106) mg/dL Calcium 7.6 L (8.4-10.2) mg/dL Total Bilirubin 0.10 L (0.2-1.3) mg/dL AST 28 (14-36) U/L ALT 15 (0-35) U/L Alkaline Phosphatase 80 (38-126) U/L Serum Total Protein 6.1 L (6.3-8.2) g/dL Albumin 3.2 L (3.5-5.0) g/dL Free T4 (0.76-1.46) ng/dL TSH 3rd Generation 1.660 (0.47-4.68) mIU/L 02/10/21 Range/Units 04:53 WBC (4.0-10.5) K/mm3 RBC (4.1-5.4) M/mm3 Hgb (12.0-16.0) gm/dl Hct (35-47) % MCV (78-100) fl MCH (26-32) pg MCHC (32-36) g/dl RDW (11.5-14.0) % Plt Count (150-450) K/mm3 MPV (7.5-11.0) fl Gran % (36.0-66.0) % Eos # (Auto) (0-0.5) Absolute Lymphs (auto) (1.0-4.6) Absolute Monos (auto) (0.0-1.3) Lymphocytes % (24.0-44.0) % Monocytes % (0.0-12.0) % Eosinophils % (0.00-5.0) % Basophils % (0.0-0.4) % Absolute Granulocytes (1.4-6.9) Basophils # (0-0.4) Sodium (137-145) mmol/L Potassium (3.5-5.1) mmol/L Chloride (98-107) mmol/L Carbon Dioxide (22-30) mmol/L Anion Gap (5-15) MEQ/L BUN (7-17) mg/dL Creatinine (0.52-1.04) mg/dL Estimated GFR ML/MIN Glucose (74-106) mg/dL Calcium (8.4-10.2) mg/dL Total Bilirubin (0.2-1.3) mg/dL AST (14-36) U/L ALT (0-35) U/L Alkaline Phosphatase (38-126) U/L Serum Total Protein (6.3-8.2) g/dL Albumin (3.5-5.0) g/dL Free T4 2.40 H (0.76-1.46) ng/dL TSH 3rd Generation (0.47-4.68) mIU/L Radiology Exams: Radiology Procedures Category Date Time Status CHEST 2 VIEWS (PA AND LAT) Urgent Exams 02/09/21 15:15 Completed Assessment/Plan (1) H/O abdominal supracervical subtotal hysterectomy Current Visit: Yes Status: Acute Code(s): Z90.711 - ACQUIRED ABSENCE OF UTERUS WITH REMAINING CERVICAL STUMP
[2021-02-10] MEDS ORDERED: Zestril 10 MG PO SCH (08:30)
--- NOTE | 2021-02-10 08:38 | PCM.DS ---
Discharge Summary Date of Admission: 02/08/21 07:58 Admitting Physician: SAÚL FLEMING DO Primary Care Provider: DALIA GREENFIELD Allergies Allergies prochlorperazine [From Compazine] Allergy (Verified 02/08/21 14:55) Swelling of Tongue and Lips severe muscle spasms Hospital Summary - Hospital Course Hospital Course: PT ADMITTED ON FEBRUARY 08 FOR UNDERGOING LAPAROTOMY SUPRACERVICAL HYSTERECTOMY B/L SALPINGECTOMY SECONDARY TO ABNORMAL UTERINE BLEEDING, SEVERE DYSMENORRHEA, AND MENORRHAGIA AND UNDERWENT PROCEDURE WITHOUT COMPLICATION. PT WAS ABLE TO AMBULATE AND TOLERATE DIET ON POD 1 HOWEVER WAS NOTED HAVING ELEVATED WBC TO 21 THOUSAND AND WAS THEN STARTED ON AMP/GEN/CLINDA FOR 24 HRS. ON POD 2 PT DID WELL WITH IMPROVED WBC HOWEVER WAS NOTED HAVING ELEVATED BP. PT WAS THEN STARTED ON LISINOPRIL 10MG ON POD 2 ON FEBRUARY 10 AND HAS NO HX OF HTN. PT DOES HAVE HX OF HYPERTHYROID AND IS ON LEVOTHYROXINE. PT UNDERSTANDS TO FU IN OFFICE IN A WEEK FOR EVAL OF BP AND FU WITH [facility] FOR CONTINUED MANAGEMENT OF HTN. AT THIS TIME PT STABLE FOR DC AFTER COMPLETION OF 24 HRS IV ANTIBIOTICS. - Vitals & Intake/Output Vital Signs: Vital Signs Temperature 98.5 F 02/10/21 07:55 Pulse Rate 85 02/10/21 07:55 Respiratory Rate 20 02/10/21 07:55 Blood Pressure 171/97 02/10/21 07:55 O2 Sat by Pulse Oximetry 99 02/10/21 07:55 Intake & Output: Intake & Output 02/07/21 02/08/21 02/09/21 02/10/21 11:59 11:59 11:59 11:59 Intake Total 2979 780 Output Total 1975 2 Balance 1004 778 Weight 100.3 kg 104.1 kg - Lab Result Diagrams: 02/10/21 04:53 02/10/21 04:53 Lab Results-Last 24 Hrs: Lab Results-Last 24 Hours 02/09/21 02/10/21 02/10/21 Range/Units 13:43 04:53 04:53 WBC 21.3 H 14.7 H (4.0-10.5) K/mm3 RBC 4.12 4.02 L (4.1-5.4) M/mm3 Hgb 12.4 11.9 L (12.0-16.0) gm/dl Hct 38.1 37.6 (35-47) % MCV 92.5 93.5 (78-100) fl MCH 30.1 29.6 (26-32) pg MCHC 32.5 31.6 L (32-36) g/dl RDW 12.7 13.0 (11.5-14.0) % Plt Count 339 295 (150-450) K/mm3 MPV 10.4 10.7 (7.5-11.0) fl Gran % 79.6 H 72.3 H (36.0-66.0) % Eos # (Auto) 0.02 0.07 (0-0.5) Absolute Lymphs (auto) 2.92 3.03 (1.0-4.6) Absolute Monos (auto) 1.40 H 0.92 (0.0-1.3) Lymphocytes % 13.7 L 20.7 L (24.0-44.0) % Monocytes % 6.6 6.3 (0.0-12.0) % Eosinophils % 0.1 0.5 (0.00-5.0) % Basophils % 0.0 0.2 (0.0-0.4) % Absolute Granulocytes 16.97 H 10.61 H (1.4-6.9) Basophils # 0 0.03 (0-0.4) Sodium 138 (137-145) mmol/L Potassium 3.9 (3.5-5.1) mmol/L Chloride 104 (98-107) mmol/L Carbon Dioxide 31 H (22-30) mmol/L Anion Gap 7.2 (5-15) MEQ/L BUN 7 (7-17) mg/dL Creatinine 0.64 (0.52-1.04) mg/dL Estimated GFR > 60.0 ML/MIN Glucose 99 (74-106) mg/dL Calcium 7.6 L (8.4-10.2) mg/dL Total Bilirubin 0.10 L (0.2-1.3) mg/dL AST 28 (14-36) U/L ALT 15 (0-35) U/L Alkaline Phosphatase 80 (38-126) U/L Serum Total Protein 6.1 L (6.3-8.2) g/dL Albumin 3.2 L (3.5-5.0) g/dL Free T4 (0.76-1.46) ng/dL TSH 3rd Generation 1.660 (0.47-4.68) mIU/L 02/10/21 Range/Units 04:53 WBC (4.0-10.5) K/mm3 RBC (4.1-5.4) M/mm3 Hgb (12.0-16.0) gm/dl Hct (35-47) % MCV (78-100) fl MCH (26-32) pg MCHC (32-36) g/dl RDW (11.5-14.0) % Plt Count (150-450) K/mm3 MPV (7.5-11.0) fl Gran % (36.0-66.0) % Eos # (Auto) (0-0.5) Absolute Lymphs (auto) (1.0-4.6) Absolute Monos (auto) (0.0-1.3) Lymphocytes % (24.0-44.0) % Monocytes % (0.0-12.0) % Eosinophils % (0.00-5.0) % Basophils % (0.0-0.4) % Absolute Granulocytes (1.4-6.9) Basophils # (0-0.4) Sodium (137-145) mmol/L Potassium (3.5-5.1) mmol/L Chloride (98-107) mmol/L Carbon Dioxide (22-30) mmol/L Anion Gap (5-15) MEQ/L BUN (7-17) mg/dL Creatinine (0.52-1.04) mg/dL Estimated GFR ML/MIN Glucose (74-106) mg/dL Calcium (8.4-10.2) mg/dL Total Bilirubin (0.2-1.3) mg/dL AST (14-36) U/L ALT (0-35) U/L Alkaline Phosphatase (38-126) U/L Serum Total Protein (6.3-8.2) g/dL Albumin (3.5-5.0) g/dL Free T4 2.40 H (0.76-1.46) ng/dL TSH 3rd Generation (0.47-4.68) mIU/L Micro Results-Entire Visit: Microbiology 02/09/21 Unknown Urine Culture - Preliminary Clean Catch Midstream NO GROWTH TO DATE 02/08/21 11:18 Urine Culture - Final Urine, Catheterized NO GROWTH - Radiology Exams Ordered Rad Exams-Entire Visit: Radiology Procedures Category Date Time Status CHEST 2 VIEWS (PA AND LAT) Urgent Exams 02/09/21 15:15 Completed - Procedures and Test Procedures and Tests throughout Hospitalization: Therapy Orders & Screens 02/08/21 14:33 Incentive Spirometry UD Comment: Diagnosis: S/P HYESTERECTOMY 02/08/21 15:58 Oxygen NASAL CANNULA 2 lpm Comment: O2 SAT 88% ON RM AIR Diagnosis: S/P HYESTERECTOMY Discharge Exam Wound Assessment: Skin/Wound Assessment Wound/Incision Assessment Start: 02/08/21 13:10 Text: Status: Active Freq: Q4H Protocol: Document 02/10/21 04:00 ST (Rec: 02/10/21 04:18 ST [id number]) Wound/Incision Assessment Transverse Suprapubic Wound Assessment Shift Assessment Wound Type Incision Wound Stage Non Pressure Wound Drainage Amount None General Appearance Well Approximated,Asymptomatic ,Open to air,Clean/Dry Surrounding Tissue [place] Wound Photo Photo Taken No Final Diagnosis/Problem List - Final Discharge Diagnosis/Problem (1) H/O abdominal supracervical subtotal hysterectomy Current Visit: Yes Status: Acute Code(s): Z90.711 - ACQUIRED ABSENCE OF UTERUS WITH REMAINING CERVICAL STUMP (2) Hypertension Current Visit: Yes Status: Acute Code(s): I10 - ESSENTIAL (PRIMARY) HYPERT ENSION (3) Neutrophilic leukocytosis Current Visit: Yes Status: Acute Code(s): D72.9 - DISORDER OF WHITE BLOOD CELLS, UNSPECIFIED - Discharge Disposition: Home, Self-Care Condition: Stable Prescriptions: New Metronidazole 500 mg [Flagyl 500 MG] 500 mg PO Q8H PRN PRN #21 tablet PRN Reason: INFECTION Hydrocodone/Acetaminophen [Hydrocodone-Acetamin 5-325 mg] 1 each PO Q6HPRN PRN #30 tablet MDD 4 PRN Reason: Pain Levofloxacin [Levaquin] 750 mg PO DAILY 7 Days #7 tablet Lisinopril 10 mg [Zestril 10 MG] 10 mg PO DAILY 30 Days #30 tablet Continue Levothyroxine Sodium [Levoxyl] 150 mcg PO DAILY #30 tablet Ferrous Sulfate [Iron] 325 mg PO TID Follow up with: SAÚL FLEMING DO [ACTIVE STAFF] - 02/23/21 11:15 am (no heavy lifting nothing per vagina for 6 wks may shower but no bath for 2 wks keep incision clean and dry)
[2021-02-10] MEDS ORDERED: TYLENOL 325 MG PO PRN (08:40)
[2021-02-10] MEDS: Colace 100 MG PO SCH (09:07)
[2021-02-10] MEDS: FEOSOL 325 MG PO SCH ×2 (09:07→14:26)
[2021-02-10] MEDS: SYNTHROID 150 MCG PO SCH (09:07)
[2021-02-10] MEDS ORDERED: Dulcolax 10 MG SUPP PR ONE (10:41)
[2021-02-10 12:16] VITALS: O2SAT 99
[2021-02-10] MEDS ORDERED: xanAX 0.25 MG PO ONE (14:13)
[2021-02-10 16:54] VITALS: BP 137/73; PULSE 83
== END 2021-02-10 17:50 | disposition home or self-care (01) | DRG 743 ==
LOC: MED SURG 07:58
PROVIDERS: ADMIT Obstetrics & Gynecology; ATTEND Obstetrics & Gynecology
PROC: 0UT90ZL Resection of Uterus, Supracervical, Open Approach (ICD-10-PCS; principal; 2021-02-08)
PROC: 0UT70ZZ Resection of Bilateral Fallopian Tubes, Open Approach (ICD-10-PCS; 2021-02-08)
DX: N94.6 Dysmenorrhea, unspecified (principal); N87.9 Dysplasia of cervix uteri, unspecified; N93.9 Abnormal uterine and vaginal bleeding, unspecified; N73.6 Female pelvic peritoneal adhesions (postinfective); E05.90 Thyrotoxicosis, unspecified without thyrotoxic crisis or storm; Z20.828 Contact with and (suspected) exposure to other viral communicable diseases; I10 Essential (primary) hypertension; D72.9 Disorder of white blood cells, unspecified; N83.8 Other noninflammatory disorders of ovary, fallopian tube and broad ligament
CPT/HCPCS: 36415; 58180; 62322; 64488; 71046; 76937; 76942; 80053; 81001; 84439; 84443; 84702; 85025; 85027; 86850; 86900; 86901; 87040; 87086; 88304; 88305; 88307; 94762; J0290; J0690; J1100; J1580; J1650; J1885; J2250; J2270; J2274; J2405; J2704; J3010; A9270-GY